=== PATIENT | female | born 1970 | race Caucasian/White ===

== ENCOUNTER → 2017-04-18 09:02 | Outpatient (CLI) | payer OTHER, SELFPAY ==
--- NOTE | 2017-04-18 09:06 | US_ITS ---
STUDY: ULTRASOUND - URINARY BLADDER REASON FOR EXAM: Female, 46 years old. Urinary retention. TECHNIQUE: Ultrasound evaluation of the urinary bladder was performed with real-time and static alfonso-scale imaging. COMPARISON: None. FINDINGS: There is no right UVJ calculus. There is a visualized right ureteral jet. There is no left UVJ calculus. There is a visualized left ureteral jet. The distended volume of the urinary bladder is 231 ml. The empty volume of the urinary bladder is 46 ml. The bladder wall is within normal limits. The bladder wall measures 3 mm. There is no demonstrated bladder wall mass lesion. There are no demonstrated bladder calculi. US/Post Void Residual Bladder IMPRESSION: Minimal postvoid residual. Otherwise negative. Electronically Signed: Richmond Stein MD at 16:48 EST , Service support ,
== END ==
PROVIDERS: Family Provider Internal Medicine; PCP Internal Medicine; Visit Provider Internal Medicine
DX: N39.9 Disorder of urinary system, unspecified (principal)
CPT/HCPCS: 51798

== ENCOUNTER → 2017-07-04 11:14 | Outpatient (CLI) | payer OTHER, SELFPAY ==
--- NOTE | 2017-07-04 11:16 | RAD_ITS ---
STUDY: X-RAY - ABDOMEN/PELVIS REASON FOR EXAM: Female, 46 years old. Bilateral kidney stones. TECHNIQUE: 2 images of the abdomen were obtained. COMPARISON: CT dated May 02, 2016 FINDINGS: There is a nonspecific bowel gas pattern. There are surgical clips within the right upper quadrant cholecystectomy. There is a neurostimulator partially projecting over the expected region of the right kidney. No renal calculi are seen. There are phleboliths within the pelvis. There are pedicle screws at L5-S1. RAD/Abdomen Single View IMPRESSION: Nonspecific bowel gas pattern. Electronically Signed: Monica Sánchez MD at 19:21 EDT Tel , Service support ,
== END ==
PROVIDERS: Family Provider Internal Medicine; PCP Internal Medicine; Visit Provider Urology
DX: N23 Unspecified renal colic (principal)
CPT/HCPCS: 74018

== ENCOUNTER → 2017-07-04 13:13 | Outpatient (CLI) | payer OTHER, SELFPAY | PROVIDERS: Family Provider Internal Medicine; PCP Internal Medicine; Visit Provider Urology | DX: R31.9 Hematuria, unspecified (principal); Z87.442 Personal history of urinary calculi | CPT/HCPCS: 87086; 87088 ==

== ENCOUNTER → 2017-07-18 14:39 | Outpatient (CLI) | payer OTHER, SELFPAY ==
--- NOTE | 2017-07-18 14:46 | CT_ITS ---
STUDY: CT ABDOMEN AND PELVIS WITHOUT CONTRAST REASON FOR EXAM: Female, 46 years old. Bilateral flank pain. Bladder pain. Hematuria. Follow smelling urine. RADIATION DOSAGE (If Supplied By Facility): CTDIvol = ( 16.2 ) mGy, DLP = ( 858.4 ) mGycm TECHNIQUE: Transaxial images were obtained from the dome of the diaphragm to the symphysis pubis without oral contrast, and without intravenous contrast. Sagittal and coronal images were reconstructed. Individualized dose optimization techniques were used for this CT. COMPARISON: CT of the abdomen and pelvis, May 02, 2016. FINDINGS: The visualized lung bases are unremarkable. The heart is normal size. There is minimal pericardial thickening. Normal liver. There are surgical clips in the gallbladder fossa consistent with a prior cholecystectomy. Normal spleen. Normal pancreas. Normal bilateral adrenal glands. The right kidney is of normal size and cortical thickness. 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 The ureters appear to merge in the upper pelvis. Normal left kidney. Normal left ureter. Normal visualized stomach. Normal small intestine. Normal colon. The appendix is visualized and appears normal. Normal abdominal aorta. Minimal atherosclerotic changes of the abdominal aorta without aneurysm. Normal retroperitoneum. Normal urinary bladder. Normal vaginal cuff. No pelvic lymphadenopathy or mass. Again seen are multiple right sided phleboliths unchanged from prior study. No free air or free fluid is seen within the peritoneal cavity. Normal abdominal wall. There is a generator for dorsal column stimulator overlying the right upper back. There is evidence of L5-S1 fusion with laminectomy. CT/Abdomen/Pelvis without Cont IMPRESSION: 1. Normal kidneys and ureters and urinary bladder. There is a partially duplicated right renal collecting system without hydronephrosis or renal calculi. The suspected right ureteral calculus on the prior study appears to be a phlebolith. 2. Status post hysterectomy and cholecystectomy. 3. Dorsal column stimulator. 4. Posterior fusion at L5-S1. Electronically Signed: Bernardo Muñoz DO at 15:28 EDT Tel [phone], Service support ,
== END ==
PROVIDERS: Family Provider Internal Medicine; PCP Internal Medicine; Visit Provider Urology
DX: N20.0 Calculus of kidney (principal)
CPT/HCPCS: 74176

== ENCOUNTER → 2017-09-08 18:38 | Outpatient (CLI) | payer OTHER, SELFPAY ==
--- NOTE | 2017-09-08 18:41 | CT_ITS ---
STUDY: CT BRAIN WITHOUT CONTRAST REASON FOR EXAM: Female, 46 years old. HEAD INJURY, LEFT EAR DRUM PAIN, FALL 2 WKS AGO RADIATION DOSAGE (If Supplied By Facility): CTDIvol = ( 44.99 ) mGy, DLP = ( 829.85 ) mGycm TECHNIQUE: Transaxial CT imaging of the brain was performed without administration of intravenous contrast material. Individualized dose optimization techniques were used for this CT. COMPARISON: None. FINDINGS: Normal soft tissue structures. Normal calvarium. Normal size ventricles and extra-axial spaces for the patient's age. Normal white matter tracts of the cerebral hemispheres. Normal basal ganglia and thalami. Normal brainstem. Normal cerebellum. There is no intracranial hemorrhage. There are no findings of an acute ischemic infarction. Normal visualized paranasal sinuses. CT/Brain/Head without Contrast IMPRESSION: Normal unenhanced CT scan of the brain. Electronically Signed: Mark Enamorado MD at 19:00 EDT , Service support ,
== END ==
PROVIDERS: Family Provider Internal Medicine; PCP Internal Medicine; Visit Provider Internal Medicine
DX: R51 Headache (principal)
CPT/HCPCS: 70450

== ENCOUNTER 2017-10-25 07:23 | Day surgery (SDC) | payer OTHER, SELFPAY ==
[2017-10-20 15:06] LABS: Hematocrit 44.6 % (37-47); Hemoglobin 15.1 g/dl (12.0-15.0); Mean Corp Hgb Conc 33.9 g/gl (32-36); Mean Corpuscular Hgb 30.9 pg (27.0-32.0); Mean Corpuscular Volume 91.4 fL (81-99); Mean Platelet Vol. 9.8 fl (6.2-12.0); Platelet Count 269 K/mm3 (150-450); RBC Distribution Width SD 39.9 fl (35.1-43.9); Red Blood Count 4.88 M/mm3 (4.2-5.4); White Blood Count 5.9 K/mm3 (4.4-11.0)
[2017-10-20 15:08] LABS: Scan Indicated on CBC? Y/N NO
[2017-10-25] VITALS (8 sets, daily range): BP systolic 116–146; BP diastolic 69–90; PULSE 76–94; RESP 16; TEMP 36.3–36.8; O2SAT 93–98; BMI 29.5
--- NOTE | 2017-10-25 08:47 | PCM.DC.ORTHO ---
Discharge Diet: No Restrictions - remove dressings in 4 days and apply bandaids to incision sites, sling, follow up in 2 weeks, call with concerns, may remove sling to do arm pendulums and raise arm above head however not allowed to actively flex at the elbow Discharge Activity: May Not Drive May shower in (days): 1 Ice area for (Minutes): 20 - Every hour while awake. Weight Bearing Status: Weight bearing as tolerated Keep extremity elevated above heart level: Operative Extremity Call your doctor if your incision/area has: Continuous Slow Oozing, Sudden Increased Bleeding, Increased Pain/ Swelling, Increased Redness, Foul Smelling Discharge Call your doctor if you observe: Fever of 101 or Higher, Coldness, Increased Pain, Numbness or Tingling, Change in Color, Calf discomfort Allergies/Adverse Reactions: Allergies ciprofloxacin [From Cipro] Allergy (Verified 10/18/17 13:19) Hives ciprofloxacin HCl [From Cipro] Allergy (Verified 10/18/17 13:19) Hives Medications to take at Discharge cholecalciferol (vitamin D3) 5,000 unit capsule 2,000 unit PO DAILY cap 05/16/17 duloxetine 60 mg capsule,delayed release 60 mg PO QDAY 05/16/17 fentanyl 12 mcg/hr transdermal patch 1 patch TRANSDERMAL Q72H 05/16/17 ibandronate 150 mg tablet 150 mg PO QMONTH 05/16/17 lorcaserin 10 mg tablet 10 mg PO BID 05/16/17 pregabalin 150 mg capsule 150 mg PO BID 09/21/17 Mirabegron [Myrbetriq] 50 mg PO DAILY 10/18/17 Omeprazole 40 mg PO DAILY 10/18/17 Topiramate [Topamax] 50 mg PO BID 10/18/17 Hydrocodone Bitart/Apap 5-325 [[place] 5MG-325MG] 1 - 2 tablet PO Q6H PRN PRN 5 Days #40 tablet 10/25/17 The following prescriptions were given: Hydrocodone Bitart/Apap 5-325 [[place] 5MG-325MG] 1 - 2 tablet PO Q6H PRN PRN 5 Days #40 tablet PRN Reason: Pain Primary Care Physician: La Cordero MD [Primary Care Provider] - Test Results: Test results from this visit will be discussed in further detail at your follow-up appointment, if applicable. Please Follow Up With: Marlena Ceja, DO - [phone]
--- NOTE | 2017-10-25 08:47 | PCM.OPRPT ---
Report of Operation Date of Procedure: 10/25/17 Pre-Operative Diagnosis: left shoulder impingement syndrome, biceps tendinosis, synovitis, Post-Operative Diagnosis: same Surgery/Procedure Performed:: sals, subacromial decompression/acromioplasty, intraarticular debridement, open subpec biceps tenodesis Type of Anesthesia:: General/Regional Anesthesiologist: Lg Rodriguez Fluids Replaced: 1000ml lr Description of Procedure: Preoperative note Patient is a 47-year-old female who is failed conservative treatment for continued left shoulder pain impingement syndrome and biceps tendinosis. Patient had ultrasound done that showed biceps tendinosis as well as bursitis no obvious rotator cuff tear. Risks benefits and alternatives surgery discussed with patient. Risks including but not limited to blood loss, blood clot, infection, neurovascular injury, failure procedure, loss of life and loss of limb. Patient is aware like proceed with left shoulder arthroscopy repair is indicated. Operative note Patient seen and examined preoperative holding area. Left shoulder was marked. Patient received a preoperative regional block. Patient was brought to the operating room placed supine on the operating room table. Sign, anesthesia, antibiotics for Mr. Patient was placed in beachchair positioning with all bony prominences well-padded SCDs placed on her bilateral lower extremity. Senior Living through beachchair position we did recheck her blood pressure which was stable throughout. Patient's left arm was prepped and draped in usual sterile fashion all bony landmarks were marked out and a timeout was performed. Then insufflated the glenohumeral joint from the posterior portal. We had good return. We then created our posterior portal with an 11 blade. We will visualize the glenohumeral joint. She had a little bit of eburnated changes of the articular surface of the humerus. We then created an anterior portal under direct visualization. Patient had synovitis on the superior aspect of the labrum and on the lateral joint line as well as anterior. We used the shaver to gently debrided back any synovitis of the shoulder. We then evaluated the biceps the biceps insertion was unstable. We then resected the biceps anchor with a ablator wand. The subscap was intact rotator cuff was intact there were no loose bodies in the inferior recess. We then moved to the acromial space. We created a lateral portal under direct visualization. There is extensive bursitis throughout. We resected the bursa with a combination of a shaver and ablator. We then co-plane and removed any loose pieces on the leading edge of the acromion. The rotator cuff was intact and stable to probing. We then moved to her open biceps tenodesis. The patient was reprepped we will out of the way to time we created a 2 cm incision just distal to the insertion of the pack. We used a 15 blade cut the skin dissected down with tenotomy syllable of the biceps sheath which was excised the biceps was then brought out of the incision appropriate length was achieved and the biceps tendon was truncated. We then in standard fashion whipstitched the remaining stump of the biceps we placed our pec button at the end and we then drilled unicortical bone tunnel in the proximal humeral shaft. This brought the tendon down to bone we then oversewed with a free needle the tendon down to the periosteum. We then irrigated the incision with copious amounts of sterile saline. Please note that we did measure the length of the biceps and with the arm extended. We closed the incision with 3-0 Vicryl in a running 4-0 Monocryl in the portals with interrupted 4-0 nylon stitches. Sterile dressings were applied patient was placed in a splint sling. Patient tolerated procedure well there are no complication patient was transferred to recovery room in stable condition. Next Postoperative note Pictures given to family Call with increased pain numbness tingling or further issues arise Follow-up in 2 weeks Pharmacy has prescription This note was generated with Plug.dj dictation software. It may contain incorrect words, spelling, and punctuation that were not noted in checking the note before signing.
--- NOTE | 2017-10-25 09:05 | TESH_PTH ---
PATIENT: PELON ROJAS [place] [facility] [id number] AGE/SX: 47/F ROOM: RE10/25/[address]: Dr. Marlena Ceja DO : 1970 BED: DIS: 10/25/2017 SPEC #: [id number] RECD: 10/25/17 13:53 STATUS: JENNA ABE #: [id number] CHERYL: 10/25/17 09:[address]: Marlena Ceja DEPT: SURGICAL PATHOLOGY RECD BY: Ramin Martinez ENTERED: 10/25/17 14:24 SP TYPE: TENDON OTHR DR: Dr. La Cordero MD Tissues: Tendon and tendon sheath, NOS Procedures: Surgery Specimen Level III HEADER OPERATION: Arthroscopy, shoulder, open bicep tenodesis, subacromial PRE-OP DIAGNOSIS: Left shoulder impingement syndrome; bursitis of left shoulder TISSUE SUBMITTED: Left biceps tendon MICROSCOPIC DIAGNOSIS Left bicep tendon: Pieces of dense fibroconnective tissue and synovial tissue with reactive changes and chronic inflammation. ARELY:carrie 10/26/17 MICROSCOPIC DESCRIPTION Slides are reviewed. GROSS DESCRIPTION Received in fixative is one container labeled with the patient's name and designated biceps tendon. The specimen consists of two pieces of cooney, indurated tissue measuring in aggregate 3.5 x 1 x 0.3 cm. The entire specimen is submitted in one cassette. / ARELY:carrie 10/25/17 TC:3 CPT: 81735
[2017-10-25] MEDS: Cefazolin 2 GM in 0.9% Normal Saline 100 ML IV (09:34)
[2017-10-25] MEDS: Mupirocin Ointment 22gm Tube 1 APPLIC (11:06)
[2017-10-25] MEDS: HYDROcodone Bitartrate/Apap 5/325 Tablet PO (12:58)
== END 2017-10-25 13:26 | disposition home or self-care (01) ==
LOC: SDC 07:25 → AC 07:25
PROVIDERS: Family Provider Internal Medicine; PCP Internal Medicine; Visit Provider Orthopaedic Surgery
PROC: (CPT 29827; principal; 2017-10-25 08:50)
DX: M65.9 Synovitis and tenosynovitis, unspecified (principal); M75.22 Bicipital tendinitis, left shoulder; M75.42 Impingement syndrome of left shoulder; M75.52 Bursitis of left shoulder; G47.30 Sleep apnea, unspecified; M06.9 Rheumatoid arthritis, unspecified; G25.81 Restless legs syndrome; M19.90 Unspecified osteoarthritis, unspecified site; M79.7 Fibromyalgia; Q79.6 Ehlers-Danlos syndromes; K21.9 Gastro-esophageal reflux disease without esophagitis; Z87.442 Personal history of urinary calculi; Z79.891 Long term (current) use of opiate analgesic; Z79.899 Other long term (current) drug therapy
CPT/HCPCS: 29822; 29828; 36415; 85027; 88304; 93005; J7120; J2405

== ENCOUNTER 2018-02-06 14:00 | Outpatient (RCR) | payer OTHER, SELFPAY ==
--- NOTE | 2017-11-16 12:22 | HP.PTEVAL_ITS ---
Patient's Visit Information PELON ROJAS is a 47 year old F referred to Physical Therapy by Marlena Ceja DO with a diagnosis of LEFT SHOULDER SCOPE WITH BICEPS TENODESIS 10/25/09. Date of Evaluation: 11/16/17 Physical Therapist: Bonita Masterson Visit Plan Frequency: 2x /Week Duration: 2-4 Months Plan: PT REHAB PER THE [facility] BICEPS TENODESIS GUIDELINES/ PROTOCOL IN PROTOCOL FOLDER TOLERATED. MONITOR LEFT UE NUMBNESS/TINGLING/ DISCOMFORT. MONITOR LEFT NECK PAIN/CHECK NECK ROM. - Subjective Subjective: Diagnosis: S/P LEFT SHOULDER SCOPE WITH BICEPS TENODESIS 10/25/17. Work/Leisure: UNEMPLOYEED. Disability: NO. Present symptoms: NUMBNESS WITH DISCOMFORT IN FINGERS AND FOREARM. SHE REPORTS IT IS NEVER ALL OF HER FINGERS TOGETHER - THE NUMBNESS IS EITHER IN HER LAST TWO FINGERS OR FIRST 3 FINGERS. STATES SHE DEVELOPED A PINCH IN HER NECK ABOUT 3 DAYS AGO. Present since: ONGOING PROBLEM WITH LEFT ARM FOR YEARS PER PATIENT REPORT. Pain Scale: Worst - 6/10 Least - 0/10. PATIENT REPORTS MOST OF THE TIME SHE DOESN'T HAVE ANY PAIN. STATES SHE REALLY HASN'T HAD ANY PAIN WITH THE SHOULDER. THE PAIN/ DISCOMFORT IS IN THE FOREARM AND FINGERS. THE NUMBNESS AND TINGLING IN HER FINGERS COMES AND GOES. LEFT NECK PAIN UP TO 7/10 AT WORST AND 4/10 AT LEAST. HER LEFT NECK PAIN IS CONSTANT. Currently: LEFT NECK PAIN 5/10, LEFT FOREARM/ HAND 0/10. Commenced as a result of: NO APPARENT REASON. Symptoms at onset: LEFT SHOULDER. PATIENT REPORT SHE HAD SOME TINGLING NUMBNESS BEFORE SURGERY TOO BUT IT WAS DIFFERENT THAN WHAT SHE HAS NOW. Disturbed sleep: YES. Previous history/Previous treatment: PHYSICAL THERAPY. Dizziness: NO. Tinnitis: YES. Nausea: NO. Difficulty Swollowing: INTERMITTENT. Gait: NOT USING ANY ASSISTIVE DEVICES. STATES RIGHT KNEE IS STILL A MESS. PMH/ Recent major surgery: Medical History: Bursitis (Acute). Kit-Danlos disease (Chronic). Fibromyalgia (Chronic). Osteoarthritis (Chronic). Restless leg (Chronic). Rheumatoid arthritis (Chronic). Sleep apnea (Chronic) . Surgical History: h/o left shoulder surgery (Acute). H/O: hysterectomy ( Inactive). History of partial knee replacement (Inactive). Kidney stones ( Inactive). S/P cholecystectomy (Inactive). back fusion (Inactive). neurostimulator (Inactive) - Objective AFTER DISCUSSING LAST ORTHO VISIT WITH PATIENT SHE REPORTS SHE DID NOT UNDERSTAND THAT SHE WAS SUPPOSED TO START RESTING HER ARM OUT OF THE BRACE SO SHE HAS REMAINED IN BRACE AT ALL TIMES EXCEPT SHOWER. SHE AMBULATES INDEP'LY INTO PT WITHOUT ANY ASSISTIVE DEVICES BUT DECREASED CADANCE AND MILD LIMP ON RIGHT LE. SHE HAS GOOD AROM OF HER LEFT HAND AND WRIST. LEFT UE LIGHT TOUCH SENSATION IS INTACT. INCISION AND PORT HOLES LOOK GOOD WITHOUT ANY SIGNS OF INFECTION. MILD LEFT SHOULDER AND BICEPTS SWELLING. LEFT PASSIVE ELBOW ROM = MINUS 5 DEG EXT TO 155 DEG FLEX. 5 DEG EXTERNAL ROTATION OF LEFT SHOULDER PAST NEUTRAL WITH ELBOW AT SIDE. PASSIVE LEFT SHOULDER FLEX TO 95 DEG. HOME INSTRUCTIONS GIVEN FOR PENDULUM EX GENTLY CW, CCW, FLEX AND EXTENTION PASSIVELY , AROM OF WRIST AND HAND WHEN RESTING OUT OF BRACE, USE OF HAND PUTTY TOLERATED AND SCAP SQUEEZES IN BRACE. INSTRUCTION IN PROPER POSTURE CONTROL. TO CONTINUE PASSIVE SHOULDER FLEXION AND PATIENT TO CONTINUE PASSIVE ELBOW FLEX/EXT IN BRACE. PATIENT COMMUNICATED AND DEMONSTRATED A GOOD UNDERSTANDING OF ALL INSTRUCTIONS AFTER GIVEN. - Goals Goal 1:: 90% IMPROVEMENT WITH PATIENT REPORTED OUTCOME Goal Time Frame: 12-16 Weeks Goal 2:: FULL ACTIVE ROM OF LUE WITHOUT COMPENSASTORY MVMTS Goal Time Frame: 12-16 Weeks Goal 3:: IMPROVE FUNCTIONAL STRENGTH OF LUE TO ALLOW FOR PAIN-FREE ADL MOVEMENTS WITHOUT COMPENSATIONS. Goal Time Frame: 12-16 Weeks Goal 4:: INDEP HEP FOR CONTINUED IMPROVEMENT ONCE FORMAL PHYSICAL THERAPY CONCLUDES Goal Time Frame: 12-16 Weeks - Rehabilitation Potential Rehabilitation Potential: Fair - Anticipated Interventions Patient/Client Instruction: Educate patient on: Condition, Plan of Care, Risk Factors, Benefits of Fitness Program For the Purpose of:: To improve self management Therapeutic Exercise to Include: Strength training, Postural training, Flexibilty training, Passive ROM, Active ROM, Scapular Strength/Stabilization Comment: PER PROTOCOL For the Purpose of:: To increase ROM, To improve muscle performance and motor function, To improve ability to perform ADL's, To increase tolerance to activity /condition/position, To improve performance and independence with ADL's, To improve ability of physical actions for home/community/work/leisure, To decrease soft tissue restriction Cryotherapy (ice pack, ice massage): Yes Vasopneumatic device: Yes For the Purpose of:: To decrease pain, To decrease swelling/inflammation Thank you for the opportunity to evaluate your patient. For Medicare and Medicare HMO plans, please review the plan of care and approve it. It will need to be FAXED BACK to us at [phone] for Medicare purposes. Please let me know if there are questions or concerns regarding this plan of care. Physician Signature: Date:
--- NOTE | 2017-12-21 09:58 | HP.PTREVAL_ITS ---
Marlena Ceja, DO, It has been my pleasure to treat PELON ROJAS over the last 9 visits for LEFT SHOULDER SCOPE WITH BICEPS TENODESIS 10/25/09. Please see the progress note below for an update on the physical therapy plan of care! Subjective: PATIENT REPORTS SHE HAS JUST A LITTLE BIT OF PAIN IN THE SHOULDER ITSELF BUT THE SX'S IN THE THE REST OF HER ARM AND HAD THAT HAS SUBSIDED. STILL SOME RESIDUAL AARTI HAND NUMBNESS AND TINGLING. PATIENT REPORTS WHEN SHE FOLLOWED UP WITH ORTHO AT THE BEGINNING OF DECEMBER THEY WERE HAPPY WITH HER PROGRESS AND SHE IS SCHEDULED TO RETURN IN JANUARY. SHE REPORTS SHE DOES NOT HAVE ANY RESTRICTIONS AT THIS TIME AND ACTIVITIY IS TOLERATED. HER GOAL AT THIS POINT IS TO GET THE STRENGTH BACK IN HER ARM. Objective/Function: PATIENT IS 8 WEEKS PO. DASH SCORE HAS IMPROVED FROM 112 TO 71. PATIENT IS MAKING SLOW PROGRESS TOWARD ALL PT GOALS. PATIENT IS STILL IN PHASE 2 BECAUSE CRITERIA TO MOVE TO PHASE 3 HAS NOT BEEN MET. CURRENTLY, AROM OF LEFT SHOULDER IN SITTING IS: FLEX 123 DEG, ABD 98 DEG. PROM IN SUPINE: FLEX 148 DEG, ABD 108 DEG, IR 80 DEG AND ER 25 DEG (ROTATION MEASURED WITH 45 DEG ABD). PATIENTS NON OPERATIVE SHOULDER ROM IS ALSO SIGNIFICANTLY LIMITED AND PATIENT REPORTS IT HAS BEEN AT LEAST 2-3 YEARS SINCE SHE HAD FULL ROM OF LEFT SHOULDER. ONCE ROM PLATEAUS WE MAY NEED MODIFY THE PROTOCOL AND MOVE INTO MORE STRENGTHENING TOLERATED Plan Plan: CONT 1X/WEEK X 11 WEEKS. PT REHAB PER THE [facility] BICEPS TENODESIS GUIDELINES/PROTOCOL IN PROTOCOL FOLDER TOLERATED. PATIENT AGREEABLE. Goals Goal 1:: 90% IMPROVEMENT WITH PATIENT REPORTED OUTCOME Goal Time Frame: 12-16 Weeks Goal Progress: Progressing Goal 2:: FULL ACTIVE ROM OF LUE WITHOUT COMPENSASTORY MVMTS Goal Time Frame: 12-16 Weeks Goal Progress: Progressing Goal 3:: IMPROVE FUNCTIONAL STRENGTH OF LUE TO ALLOW FOR PAIN-FREE ADL MOVEMENTS WITHOUT COMPENSATIONS. Goal Time Frame: 12-16 Weeks Goal Progress: Progressing Goal 4:: INDEP HEP FOR CONTINUED IMPROVEMENT ONCE FORMAL PHYSICAL THERAPY CONCLUDES Goal Time Frame: 12-16 Weeks Goal Progress: Progressing Anticipated Interventions Patient/Client Instruction: Educate patient on: Condition, Plan of Care, Risk Factors, Benefits of Fitness Program For the Purpose of:: To improve self management Therapeutic Exercise to Include: Strength training, Postural training, Flexibilty training, Passive ROM, Active ROM, Scapular Strength/Stabilization Comment: PER PROTOCOL For the Purpose of:: To increase ROM, To improve muscle performance and motor function, To improve ability to perform ADL's, To increase tolerance to activity/condition/position, To improve performance and independence with ADL's, To improve ability of physical actions for home/community/work/leisure, To decrease soft tissue restriction Cryotherapy (ice pack, ice massage): Yes Vasopneumatic device: Yes For the Purpose of:: To decrease pain, To decrease swelling/inflammation Please do not hesitate to contact me at [phone] by phone or if you have questions or concerns regarding this new plan of care! Sincerely, Bonita Messina
--- NOTE | 2018-03-21 13:58 | HP.PT.NRP ---
HP - Discharge Summary (1) - Patient Information PELON ROJAS was seen in my office for initial evaluation on 11/16/17. The following Plan of Care was established for this patient: Initial Frequency: 2x /Week Initial Duration: 2-4 Months - Anticipated Interventions Patient/Client Instruction: Educate patient on: Condition, Plan of Care, Risk Factors, Benefits of Fitness Program For the Purpose of:: To improve self management Therapeutic Exercise to Include: Strength training, Postural training, Flexibilty training, Passive ROM, Active ROM, Scapular Strength/Stabilization For the Purpose of:: To increase ROM, To improve muscle performance and motor function, To improve ability to perform ADL's, To increase tolerance to activity/condition/position, To improve performance and independence with ADL's, To improve ability of physical actions for home/community/work/leisure, To decrease soft tissue restriction Cryotherapy (ice pack, ice massage): Yes Vasopneumatic device: Yes For the Purpose of:: To decrease pain, To decrease swelling/inflammation This patient was last seen in our office 02/06/18. Pertinent comments regarding their Physical therapy will appear below: This patient has not returned to Physical Therapy and is appropriate to return to MD for further follow-up as needed. At this point I will be discontinuing this patient from physical therapy. I would be happy to see this patient again in the future if found appropriate by the physician. Thank you! Bonita Messina, PT, Cert MDT
== END 2018-02-06 19:00 | disposition home or self-care (01) ==
LOC: PT 14:00
PROVIDERS: Family Provider Internal Medicine; PCP Internal Medicine; Visit Provider Orthopaedic Surgery
DX: Z98.890 Other specified postprocedural states (principal)
CPT/HCPCS: 97110; 97140; 97162; 97164; 97530

== ENCOUNTER → 2018-03-01 15:33 | Outpatient (CLI) | payer OTHER, SELFPAY | PROVIDERS: Family Provider Internal Medicine; PCP Internal Medicine; Referring Provider Otolaryngology Otolaryngology/Facial Plastic Surgery; Visit Provider Otolaryngology Otolaryngology/Facial Plastic Surgery | DX: J02.9 Acute pharyngitis, unspecified (principal) | CPT/HCPCS: 87070 ==

== ENCOUNTER → 2018-04-24 07:54 | Outpatient (CLI) | payer OTHER, SELFPAY ==
--- NOTE | 2018-04-24 08:12 | RAD_ITS ---
STUDY: X-RAY - ESOPHAGUS (BARIUM SWALLOW) WITH FLUOROSCOPY REASON FOR EXAM: Female, 47 years old. Dysphagia for solids and tablets. Hoarseness. Left vocal cord paralysis. TECHNIQUE: 18 view(s) of the esophagus were obtained following swallowing of barium. FLUOROSCOPY TIME (if supplied): (1:01) minutes/seconds COMPARISON: None. FINDINGS: There is no demonstrated esophageal foreign body. There is no demonstrated stricture or mucosal abnormality. Normal gastroesophageal junction, without a demonstrated hiatal hernia. The patient ingested a 12 mm tablet of barium without any difficulty. Normal visualized aortic arch and descending thoracic aorta. Normal visualized pulmonary parenchyma. Normal visualized osseous structures of the thorax. A spinal cord stimulator is seen. RAD/Esophagus Only IMPRESSION: Normal plain film x-ray examination (barium swallow) of the esophagus. Electronically Signed: Calvin Lovell MD at 12:36 EST , Service support ,
== END ==
PROVIDERS: Family Provider Internal Medicine; PCP Internal Medicine; Referring Provider Otolaryngology Otolaryngology/Facial Plastic Surgery; Visit Provider Otolaryngology Otolaryngology/Facial Plastic Surgery
DX: R13.10 Dysphagia, unspecified (principal)
CPT/HCPCS: 74220

== ENCOUNTER → 2018-10-08 | Outpatient (CLI) | payer SELFPAY ==
--- NOTE | 2018-10-08 15:15 | RAD_ITS ---
STUDY: X-RAY - ABDOMEN/PELVIS REASON FOR EXAM: Female, 48 years old. Abdominal pain with nausea. TECHNIQUE: AP supine and upright views of the abdomen and pelvis. COMPARISON: Comparison is made with prior study dated July 04, 2017. FINDINGS: Normal visualized lung bases. There is a moderate amount of colonic fecal material. There is no demonstrated free abdominal air. The visualized liver, spleen and kidneys are grossly normal in size and morphology. Prior cholecystectomy. A pain stimulator device is seen overlying the right midabdomen. The patient is status post laminectomy and fusion at the L5-S1 level. RAD/Abd Inc Decub and/or Erect IMPRESSION: Moderate amount of fecal material is seen in the right hemicolon. Electronically Signed: Calvin Lovell, at 15:42 EDT , Service support ,
== END | disposition home or self-care (01) ==
LOC: HPRAD 15:11
PROVIDERS: Family Provider Internal Medicine; PCP Internal Medicine; Referring Provider Internal Medicine; Visit Provider Internal Medicine
DX: R11.0 Nausea (principal)
CPT/HCPCS: 74019

== ENCOUNTER → 2018-12-31 | Outpatient (CLI) | payer OTHER, SELFPAY ==
--- NOTE | 2018-12-31 12:59 | RAD_ITS ---
STUDY: X-RAY - CERVICAL SPINE REASON FOR EXAM: Female, 48 years old. Pain, headache. TECHNIQUE: 5 view(s) of the cervical spine were obtained. COMPARISON: None FINDINGS: There are degenerative changes of the anterior atlantoaxial articulation. Normal odontoid process. Normal cervical lordosis. There is multi-level endplate spondylosis. There is narrowing of disc space at C6-C7, remainder of disc height is normal. Normal visualized intervertebral neuroforamina. The soft tissue structures are unremarkable. There is no demonstrated fracture of the cervical spine. RAD/Cerv Spine 4 or 5 Views IMPRESSION: Multilevel spondylosis/degenerative disease with no acute fracture or subluxation. Electronically Signed: Destiny Faith MD at 1:41 EDT , Service support ,
== END | disposition home or self-care (01) ==
LOC: HPRAD 12:58
PROVIDERS: Family Provider Internal Medicine; PCP Internal Medicine; Referring Provider Internal Medicine; Visit Provider Internal Medicine
DX: M54.2 Cervicalgia (principal)
CPT/HCPCS: 72050

== ENCOUNTER → 2019-01-02 | Outpatient (CLI) | payer OTHER, SELFPAY ==
--- NOTE | 2019-01-02 13:25 | RAD_ITS ---
STUDY: X-RAY BONE SURVEY COMPLETE REASON FOR EXAM: Female, 48 years old. Myeloma. TECHNIQUE: Single AP portable view of the chest. One view of the pelvis was obtained. 2 views of the cervical spine were obtained. 2 views of the thoracic spine were obtained. 2 views of the lumbar spine were obtained. 1 views of the femur, distal tibia and fibula. 1 views of the humerus, radius and ulna. : 2 views of the skull were obtained. COMPARISON: None. FINDINGS: CHEST: The lungs are clear and expanded. There is no demonstrated pleural abnormality. Normal size heart. Normal mediastinum and lisbet. Normal visualized pulmonary arteries. Normal visualized aortic arch and descending thoracic aorta. There is a practical catheter in place. There is diffuse osteopenia with multilevel spondylosis/degenerative disease of thoracic spine. Otherwise normal visualized thoracic spine. There is degenerative osteoarthritis of the bilateral shoulders. There is no demonstrated abnormality of the visualized soft tissue structures of the upper abdomen. PELVIS: There is a non-specific bowel gas pattern. Normal visualized soft tissue structures. There is posterior fusion at L5-S1 with laminectomy. There is narrowing with cortical sclerosis and osteophyte formation of the sacroiliac joint consistent with mild degenerative osteoarthritic changes. Normal visualized bilateral superior and inferior pubic rami. There are degenerative changes of the pubic symphysis with articular narrowing and sclerosis. Normal ischial tuberosities. Normal visualized right femoral head. Normal right acetabulum. Normal right hip joint. Normal visualized left femoral head. Normal left acetabulum. Normal left hip joint. CERVICAL SPINE: There are degenerative changes of the anterior atlantoaxial articulation. Normal odontoid process. Normal cervical lordosis. There is normal in size of a spondylosis. Otherwise normal vertebral bodies and endplates. There is multi-level degenerative disc disease with multilevel disc space narrowing. This is more severe at C6-C7. The soft tissue structures are unremarkable. There is no demonstrated fracture of the cervical spine. THORACIC SPINE: Normal kyphosis of the thoracic spine. There is mild scoliosis of the thoracic spine, convexity to the right. There is demineralization of the thoracic spine with endplate spondylosis. There is multilevel disc space narrowing of the thoracic spine. The soft tissue structures are unremarkable. LUMBAR SPINE: Normal lumbar lordosis. There is no substantial scoliosis. There is a normal alignment of the vertebrae. There is multilevel endplate spondylosis of the lumbar vertebrae. Normal disc space heights. There is no demonstrated fracture. There is posterior fusion at L5-S1. The soft tissue structures are unremarkable. RIGHT FEMUR, TIBIA AND FIBULA: Normal visualized femur. Normal visualized soft tissue structure. There is no demonstrated fracture or destructive process. LEFT FEMUR, TIBIA AND FIBULA: Normal visualized femur. Normal visualized soft tissue structure. There is no demonstrated fracture or destructive process. RIGHT HUMERUS, RADIUS AND ULNA :Normal visualized humerus. There is no demonstrated fracture or osseous destructive process. There is no demonstrated soft tissue abnormality. LEFT HUMERUS, RADIUS AND ULNA :Normal visualized humerus. There is no demonstrated fracture or osseous destructive process. There is no demonstrated soft tissue abnormality. SKULL: There is no demonstrated soft tissue swelling. Normal osseous calvarium. Normal visualized facial bones. Normal visualized paranasal sinuses. RAD/Bone Survey Comp(Axial&Append) IMPRESSION: Areas of diffuse osteopenia along with multilevel degenerative disease, more so along the spine. No acute fracture or distinct bony lesion seen. Electronically Signed: Destiny Faith MD at 3:57 EDT , Service support ,
== END | disposition home or self-care (01) ==
LOC: RAD 12:33
PROVIDERS: Family Provider Internal Medicine; PCP Internal Medicine; Referring Provider Internal Medicine; Visit Provider Internal Medicine
DX: D47.2 Monoclonal gammopathy (principal)
CPT/HCPCS: 77075

== ENCOUNTER → 2019-01-15 | Outpatient (CLI) | payer OTHER, SELFPAY ==
--- NOTE | 2019-01-15 14:46 | BD_ITS ---
STUDY: DUAL ENERGY X-RAY ABSORPTIOMETRY / DXA REASON FOR EXAM: Female, 48 years old. Early menopause. Loss of height. TECHNIQUE: Bone Mineral Density (BMD) measurements of lumbar spine and bilateral hips were obtained. COMPARISON: Comparison is made with prior study dated October 13, 2015. FINDINGS: Lumbar Spine (L1-L4): g/cm2 (0.884) / T-score (-2.5) / Z-score (-2.1) Findings are suggestive of osteoporosis with a high fracture risk. Left Femur Total: g/cm2 (0.799) / T-score (-1.7) / Z-score (-1.2) Left Femoral Neck: g/cm2 (0.783) / T-score (-1.8) / Z-score (-1.1) Right Femur Total: g/cm2 (0.718) / T-score (-2.3) / Z-score (-1.9) Right Femoral Neck: g/cm2 (0.743) / T-score (-2.1) / Z-score (-1.4) The T-Scores on the most recent prior examination were: Lumbar Spine (L1-L4): There has been worsening of bone density since the previous examination. Left Femur Total: which represents a worsening of 5.7%. Right Femur Total: which represents a worsening of 14.5%. BD/Dexa Bone Density Study IMPRESSION: The patient is considered osteoporotic as outlined below according to World [employer] Organization (WHO) criteria with a high fracture risk. There has been worsening of bone density since the previous examination. Reference Information: The T-score is the number of standard deviations above or below the standard which is normal for young adults at their peak bone mineral density. The World Health Organization (WHO) interprets the T-scores as follows: Above -1 Normal bone density Between -1 and -2.5 Osteopenia Equal to / or below -2.5 Osteoporosis As a practical clinical guideline, osteopenia may be graded as follows: Mild -1 through -1.5 Moderate -1.6 through -2.0 Severe -2.1 through -2.4 The Z-score is the number of standard deviations above or below age-matched controls. A Z-score of less than -1.5 would be considered abnormal. References: 1. NIH Osteoporosis and Related Bone Diseases http://www.osteo.org 2. International Society for Clinical Densitometry http://www.iscd.org 3. National Osteoporosis Foundation http://www.nof.org Electronically Signed: Calvin Lovell, at 15:15 EST , Service support ,
== END | disposition home or self-care (01) ==
LOC: OPBD 14:40
PROVIDERS: Family Provider Internal Medicine; PCP Internal Medicine; Referring Provider Internal Medicine; Visit Provider Internal Medicine
DX: Z78.0 Asymptomatic menopausal state (principal)
CPT/HCPCS: 77080

== ENCOUNTER → 2019-02-05 07:02 | Outpatient (CLI) | payer OTHER, SELFPAY ==
--- NOTE | 2019-02-05 07:04 | CT_ITS ---
STUDY: CT CERVICAL SPINE WITHOUT CONTRAST REASON FOR EXAM: Female, 48 years old. Neck pain, history of rheumatoid arthritis and a Kit Danlos syndrome RADIATION DOSAGE (If Supplied By Facility): CTDIvol = ( 24.99 ) mGy, DLP = ( 525.88 ) mGycm TECHNIQUE: High resolution transaxial imaging was performed without contrast material. Sagittal and coronal images were reconstructed. Individualized dose optimization techniques were used for this CT. COMPARISON: None FINDINGS: Normal craniovertebral junction. Normal anterior atlantoaxial articulation. Normal odontoid process. Normal cervical lordosis. There is endplate spondylosis C6. C2-3: Normal endplates. Normal disc height and morphology. Normal central canal and intervertebral neuroforamina. C3-4: Normal endplates. Normal disc height and morphology. Normal central canal and intervertebral neuroforamina. C4-5: Normal endplates. Normal disc height and morphology. Normal central canal and intervertebral neuroforamina. C5-6: Normal endplates. Normal disc height and morphology. Normal central canal and intervertebral neuroforamina. C6-7: Disc spacing is preserved. There is endplate spondylosis of the inferior C1 body. There is no central canal stenosis or foraminal narrowing. C7-T1: Normal endplates. Normal disc height and morphology. Normal central canal and intervertebral neuroforamina. There is a small well-defined sclerotic focus of the posterior T1 body consistent with benign process such as bone island. Normal visualized soft tissue structures. CT/Spine Cervical without Contras IMPRESSION: Degenerative changes of C6. Small sclerotic focus of T1 consistent with benign process such as bone island. Electronically Signed: Jack Avalos MD at 20:43 EST , Service support ,
== END ==
PROVIDERS: Family Provider Internal Medicine; PCP Internal Medicine; Referring Provider Internal Medicine; Visit Provider Internal Medicine
DX: M47.812 Spondylosis without myelopathy or radiculopathy, cervical region (principal)
CPT/HCPCS: 72125

== ENCOUNTER 2019-02-05 10:00 | Outpatient (RCR) | payer OTHER, SELFPAY ==
--- NOTE | 2019-01-07 15:15 | HP.PTEVAL ---
Patient's Visit Information PELON ROJAS is a 48 year old F referred to Physical Therapy by La Cordero MD with a diagnosis of SHOULDER PAIN AND CORE WEAKNESS.. Date of Evaluation: 01/07/19 Physical Therapist: Bonita Messina PT, Cert MDT - Visit Plan Frequency: 2-3x /Week Duration: 6-8 Plan: AQUATIC THERAPY FOR POSTURAL AND CORE STABILITY STRENGTHENING. UE STRENGTHENING. PATIENT MAY ALSO BENEFIT FROM AN OCCUPATIONAL THERAPY CONSULT FOR ADAPTIVE EQUIPMENT AND/OR ELBOW, WRIST AND HAND STRENGTHENING HEP. - Subjective Findings: Diagnosis: SHOULDER PAIN AND CORE WEAKNESS. Disability: NO. Present symptoms: PATIENT REPORTS SHE IS GOING TO HAVE A TOTAL KNEE REPLACEMENT APR 2018 AND SHE NEEDS TO STRENGTHEN HER CORE AND SHOULDERS SO SHE CAN USE AN ASSISTIVE DEVICE POST SURGERY. Present since: CHRONIC. Pain Scale: Worst - 8/10 Least - 4/10. Currently: 06/13. Commenced as a result of: DEGENERATIVE ARTHRITIS IN NECK AND SHOULDERS. Worse: LIFTING, REACHING, PUSHING, PULLING AND ANY EXCESSIVE MVMT. Better: MASSAGE, HEAT. Disturbed sleep: YES. Previous history/Previous treatment: NO RIGHT SHLD SURGERY. LEFT SHLD SURGERY NOV 2017 FOLLOWED BY REHAB HERE AT [facility]. NO NECK SURGERY. LUMBAR FUSION 2006. SPINAL STIMULATOR. BACK SURGERY. NO RECENT CHIROPRACTIC. AQUATIC THERAPY HAS HELPED A LOT IN THE PAST. Gait: INDEP SLOW ANTALGIC GAIT INTO PT LIMPING ON RIGHT LE. Accidents: MULTIPLE FALLS - CURRENT. Unexplained weight loss: NO. Imaging: STUDY: X-RAY - CERVICAL SPINE. REASON FOR EXAM: Female, 48 years old. Pain, headache. TECHNIQUE: 5 view(s) of the cervical spine were obtained. COMPARISON: None. FINDINGS: There are degenerative changes of the anterior atlantoaxial articulation. Normal odontoid process. Normal cervical lordosis. There is multi-level endplate spondylosis. There is narrowing of disc space at C6-C7, remainder of disc height is. normal. Normal visualized intervertebral neuroforamina. The soft tissue structures are unremarkable. There is no demonstrated. fracture of the cervical spine. RAD/Cerv Spine 4 or 5 Views. IMPRESSION: Multilevel spondylosis/degenerative disease with no acute fracture or. subluxation. PMH/Recent major surgery: Bursitis (Acute). Kit-Danlos disease (Chronic). Fibromyalgia (Chronic). Osteoarthritis (Chronic). Restless leg (Chronic). Rheumatoid arthritis (Chronic). Sleep apnea (Chronic). Surgical History: h/o left shoulder surgery (Acute). H/O: hysterectomy (Inactive). History of right partial knee replacement (Inactive). Kidney stones (Inactive). S/P cholecystectomy (Inactive). back fusion (Inactive). neurostimulator (Inactive). H/O left knee arthroscopic sx. PATIENT HAS A SPINAL STIMULATOR. - Objective Sitting/Standing Posture: POOR. SLOUCHED AND SLIGHTLY FORWARD FLEX'D. Lateral shift: NO. Active Correction of posture: INCREASES BACK PAIN. Other Observations: INDEP ANTALGIC GAIT INTO PT WITHOUT ANY ASSISTIVE DEVICES LIMPING ON RIGHT LE. PATIENT REPORTS SHE HAS FOREARM CRUTCHES AT HOME BUT DIFFICULTY FOR HER TO USE DUE TO WEAKNESS AND PAIN. Motor deficit: AARTI UE, LE AND CORE WEAKNESS. AARTI SHOULDERS 2+/5, ELBOWS 3+ TO 4-/5, WRISTS AND HANDS 3+ TO 4-/5. HIPS 3+ TO 4-/5, KNEE'S 3+ TO 4-/5 ANKLES 4-/5. Sensory deficit: AARTI UE AND LE'S GROSSLY INTACT. ROM deficit: HYPERMOBILITY OF JOINTS. ONLY ABLE TO ELEVATE ARMS APPROX 125 DEG. FULL AARTI KNEE ROM (FULL EXT TO 145 DEG + FLEX). Reflexes: NT. Lumbar mvmt loss: flex - MOD. ext - NT DUE TO INSTABILITY AND PATIENT RESISTANCE. R SG - MOD. L SG - MOD. ROM PAIN LIMITED ALL PLANES. Core strength: POOR - Goals Goal 1:: IMPROVE AARTI UE AND CORE STRENGTH Goal Time Frame: 6-8 Weeks Goal 2:: PATIENT WILL BE INDEP WITH WATER EX PROGRAM FOR CONTINUED IMPROVEMENT ONCE FORMAL PHYSICAL THERAPY CONCLUDES. Goal Time Frame: 6-8 Weeks - Rehabilitation Potential Rehabilitation Potential: Fair - Anticipated Interventions Patient/Client Instruction: Educate patient on: Condition, Plan of Care, Risk Factors, Benefits of Fitness Program For the Purpose of:: To improve self management Therapeutic Exercise to Include: Strength training, Postural training, In an aquatic setting, Scapular Strength/Stabilization For the Purpose of:: To decrease pain, To improve muscle performance and motor function, To improve ability of physical actions for home/community/work/leisure Thank you for the opportunity to evaluate your patient. For Medicare and Medicare HMO plans, please review the plan of care and approve it. It will need to be FAXED BACK to us at [phone] for Medicare purposes. For Medicare only, by signing this I certify the plan of care. Please let me know if there are questions or concerns regarding this plan of care. Physician Signature: Date:
--- NOTE | 2019-03-11 10:06 | HP.PT.NRP ---
HP - Discharge Summary (1) - Patient Information PELON ROJAS was seen in my office for initial evaluation on 01/07/19. The following Plan of Care was established for this patient: Initial Frequency: 2-3x /Week Initial Duration: 6-8 - Anticipated Interventions Patient/Client Instruction: Educate patient on: Condition, Plan of Care, Risk Factors, Benefits of Fitness Program For the Purpose of:: To improve self management Therapeutic Exercise to Include: Strength training, Postural training, In an aquatic setting, Scapular Strength/Stabilization For the Purpose of:: To decrease pain, To improve muscle performance and motor function, To improve ability of physical actions for home/community/work/leisure This patient was last seen in our office 02/05/19. Pertinent comments regarding their Physical therapy will appear below: This patient has not returned to Physical Therapy and is appropriate to return to MD for further follow-up as needed. At this point I will be discontinuing this patient from physical therapy. I would be happy to see this patient again in the future if found appropriate by the physician. Thank you! Bonita Messina, PT, Cert MDT
== END 2019-02-05 19:00 | disposition home or self-care (01) ==
LOC: PT 10:00
PROVIDERS: Family Provider Internal Medicine; PCP Internal Medicine; Referring Provider Internal Medicine; Visit Provider Internal Medicine
DX: R53.1 Weakness (principal); M25.519 Pain in unspecified shoulder
CPT/HCPCS: 97113; 97162

== ENCOUNTER 2019-02-18 09:41 | Day surgery (SDC) | payer OTHER, SELFPAY ==
[2019-02-18] VITALS (7 sets, daily range): BP systolic 112–151; BP diastolic 65–96; PULSE 67–78; RESP 16; TEMP 36.2–36.5; O2SAT 98–100; BMI 35.5
[2019-02-18] MEDS: Lactated Ringers 1,000 ML 100 ML IV (10:25)
--- NOTE | 2019-02-18 11:10 | FORE_PTH ---
PATIENT: PELON ROJAS LOC: [facility] [place] U#:[id number] AGE/SX: 48/F ROOM: RE02/18/[address]: Dr. aMyank Nava MD : 1970 BED: DIS: 02/18/2019 SPEC #: [id number] RECD: 02/18/19 13:47 STATUS: JENNA RESean #: [id number] CHERYL: 02/18/19 11:[address]: Mayank Nava DEPT: SURGICAL PATHOLOGY RECD BY: Ramin Martinez ENTERED: 02/18/19 14:47 SP TYPE: FOREIGN B OTHR DR: Dr. La Cordero MD Tissues: FOREIGN BODY Procedures: Surgery Specimen Level I HEADER OPERATION: Spinal cord stimulator generator replacement PRE-OP DIAGNOSIS: Lumbosacral radiculopathy; lumbosacral spondylosis TISSUE SUBMITTED: Explant generator GROSS DIAGNOSIS A battery, clinically explant generator (gross only). SJ:carrie 02/19/19 GROSS DESCRIPTION Received labeled with the patient's name and designated explant generator. The specimen consists of a metallic battery measuring 5.5 x 4 x 0.7 cm. The inscription on the battery says [employer] model [id number], this side up, SN [id number]. The specimen is for gross identification only. / ARELY:carrie 02/18/19 CPT: 72434
[2019-02-18] MEDS: Cefazolin 2 GM in 0.9% Normal Saline 100 ML IV (11:16)
[2019-02-18] MEDS: Bacitracin 500 UNITS/GM PACKET (11:38)
[2019-02-18] MEDS: Bupivacaine 0.25% 30 ML Vial (11:51)
--- NOTE | 2019-02-18 12:18 | PCM.OPRPT ---
Report of Operation Date of Procedure: 02/18/19 Description of Surgical Findings:: PREOPERATIVE DIAGNOSIS: End of life spinal cord stimulator generator POSTOPERATIVE DIAGNOSIS: End of life spinal cord stimulator generator PROCEDURE PERFORMED: Spinal cord stimulator generator replacement, spinal cord stimulator programming ANESTHESIA: MAC. BLOOD LOSS: Minimal. COMPLICATIONS: None. Implanted device: [employer] SN # [id number] SN [id number] DESCRIPTION OF PROCEDURE: History and physical of today was reviewed. Risks and benefits of the procedure were explained. The patient understood and agreed to proceed. Informed consent was obtained. IV inserted per routine protocol. The patient was taken to the operating room and placed in the prone position the right side of the lower back and mid back was prepped and draped in a sterile fashion using iodine x3 as well as Ioban, 2 g of Ancef IV piggyback were infused per anesthesia prior to the incision the spinal cord stimulator generator previous incision was then identified and marked with a marking pen the skin and subcutaneous tissue were anesthetized with approximately 16 cc of a mixture of 2% lidocaine with 0.25% Marcaine using a 25-gauge regular needle around the previous incision, the skin and subcutaneous tissue and then incised with 11-gauge blade taken down to the subcutaneous tissue using a bipolar cautery hemostasis was maintained during the procedure the incision was then taken down all the way to the previous generator at the previous pocket created on her right lower back and mid back area the previous stitches on her previous spinal cord stimulator generator was then taken down the spinal cord stimulator was then cleared from her previous pocket using a screwdriver device provided by 1-800-DENTIST the spinal cord stimulator leads were then removed from the generator making sure that the 0-7 positioning is marked the generator was then sent for pathology for further evaluation the [employer] spinal cord stimulator generator was then taken and attached to the spinal cord stimulator leads with the positioning 0-7 matching the previous positioning on the old generator as well as 8-16 leads, impedance was then recorded to be in good range, the spinal cord stimulator generator leads were then secured in place using the screwdriver provided by the kit, the spinal cord stimulator was then placed into the previous pocket that was created and secured down to the fascia with a 2-0 nylon at the 2 eyes of the spinal cord stimulator generator, irrigation of the pocket using normal saline took place once hemostasis was maintained with pressure as well as Bovie electrocautery the area was then irrigated with approximately 50 cc of normal saline once hemostasis was then confirmed the incision was then closed with a 3-0 Vicryl interrupted to the fascia followed by a running 4-0 Monocryl to the skin the area was then dressed with bacitracin and Tegaderm patient was then taken back to recovery in stable condition patient tolerated the procedure well, spinal cord stimulator generator was then reprogrammed at the recovery area. ASSESSMENT AND PLAN: This is a 48-year-old female with end of life spinal cord stimulator generator status post spinal cord stimulator generator replacement and programming patient will continue her current medication a prescription was given to the patient for Keflex 500 mg 1 p.o. every 8 hours for 7 days , patient will follow approximately 1 week postop instructions were given to the patient as well as her verbally as well as in writing.
== END 2019-02-18 13:05 | disposition home or self-care (01) ==
LOC: SDC 09:41 → AC 09:42
PROVIDERS: Family Provider Internal Medicine; PCP Internal Medicine; Referring Provider Anesthesiology Pain Medicine; Visit Provider Anesthesiology Pain Medicine
PROC: (CPT 63688; principal; 2019-02-18 10:55)
DX: M51.17 Intervertebral disc disorders with radiculopathy, lumbosacral region (principal); M47.27 Other spondylosis with radiculopathy, lumbosacral region; M96.1 Postlaminectomy syndrome, not elsewhere classified; M50.10 Cervical disc disorder with radiculopathy, unspecified cervical region; M47.22 Other spondylosis with radiculopathy, cervical region; Q79.60 Ehlers-Danlos syndrome, unspecified; M79.7 Fibromyalgia; E04.9 Nontoxic goiter, unspecified; G47.33 Obstructive sleep apnea (adult) (pediatric); M06.9 Rheumatoid arthritis, unspecified; M19.90 Unspecified osteoarthritis, unspecified site; K21.9 Gastro-esophageal reflux disease without esophagitis; G43.909 Migraine, unspecified, not intractable, without status migrainosus; Z87.442 Personal history of urinary calculi; Z79.891 Long term (current) use of opiate analgesic
CPT/HCPCS: 63688; 88300; J7120

== ENCOUNTER → 2019-08-28 | Outpatient (CLI) | payer OTHER, SELFPAY ==
[2019-02-18 10:20] VITALS: BMI 35.5
--- NOTE | 2019-08-28 18:25 | MRI_ITS ---
STUDY: MRI CERVICAL SPINE WITHOUT CONTRAST REASON FOR EXAM: Female, 48 years old. C/O NECK PAIN BILATERALLY, L JAW PAIN X 3 YRS PAIN IN BASE OF SKULL, NO TRAUMA TECHNIQUE: Standardized fat and water weighted pulse sequences were obtained in the sagittal and axial planes. COMPARISON: CT cervical spine February 05, 2019 FINDINGS: Normal foramen magnum and brainstem-cervical cord junction. Normal craniovertebral junction. Normal anterior atlantoaxial articulation. Normal odontoid process. Normal cervical lordosis. Normal vertebral bodies and posterior osseous elements. C2-3: Normal endplates. Normal disc height, signal and morphology. Normal central canal and intervertebral neural foramina. C3-4: Normal endplates. Normal disc height, signal and tiny central disc protrusion.. Normal central canal and intervertebral neural foramina. C4-5: Normal endplates. Normal disc height, signal and morphology. Normal central canal and intervertebral neural foramina. C5-6: Normal endplates. Normal disc height, signal and tiny central disc protrusion.. Normal central canal and intervertebral neural foramina. There are prominent bilateral perineural cysts C6-7: Mild endplate spurring.. Normal disc height, signal and minor bulging of the disc. Normal central canal and intervertebral neural foramina. There are prominent bilateral perineural cysts C7-T1: Normal endplates. Normal disc height, signal and morphology. Normal central canal and intervertebral neural foramina. Normal cervical cord. Normal visualized soft tissue structures. MRI/Spine Cervical (Routine) IMPRESSION: Tiny central disc protrusions at C3-4 and C5-6 without significant spinal stenosis No evidence for acute fracture or subluxation. Mild spondylosis most pronounced at C6-7. Bilateral perineural cysts at C5-6 and C6-7 of uncertain clinical significance Electronically Signed: Mayank Tan MD at 19:40 EDT , Service support ,
== END | disposition home or self-care (01) ==
PROVIDERS: PCP Internal Medicine; Referring Provider Internal Medicine; Visit Provider Internal Medicine
DX: M47.812 Spondylosis without myelopathy or radiculopathy, cervical region (principal)
CPT/HCPCS: 72141

== ENCOUNTER → 2019-09-25 | Outpatient (CLI) | payer OTHER, SELFPAY ==
[2019-02-18 10:20] VITALS: BMI 35.5
--- NOTE | 2019-09-25 15:45 | BI_ITS ---
MAMMOGRAPHY - BILATERAL SCREENING 3-D TOMOSYNTHESIS REASON FOR EXAM: Female, 49 years old. Routine screening PERTINENT HISTORY: FAM HX PAT GMA AGE 50S, PAT COUSIN AGE 42, MAT COUSIN AGE 30S -- NO SX. TECHNIQUE: 2-D mammograms and 3-D Tomosynthesis of the breast (s) were performed. CAD was performed. COMPARISON: 10/28/2016 FINDINGS: The breast composition is composed of scattered fibroglandular density. Scattered benign calcifications are seen. No dense spiculated masses or suspicious microcalcifications are identified. No architectural distortion is identified. There is no skin thickening or retraction. There has been no significant change since the prior study. BI/SCREEN MAMM (CAD) W/UBALDO BILAT IMPRESSION: No mammographic signs of malignancy. Routine yearly mammograms recommended. ASSESSMENT CATEGORY: BIRADS Category 1: Negative. A letter regarding these results will be sent to the patient by the facility within 30 days. FOLLOW UP RECOMMENDATION: Yearly follow up mammogram recommended. (A) Approximately 10% of breast cancers are not detected by mammography. A normal mammogram should not delay biopsy of a clinically suspicious abnormality. Electronically Signed: David Medina MD at 7:43 EDT , Service support ,
== END | disposition home or self-care (01) ==
LOC: OPBI 15:43
PROVIDERS: PCP Internal Medicine; Referring Provider Internal Medicine; Visit Provider Internal Medicine
DX: Z12.31 Encounter for screening mammogram for malignant neoplasm of breast (principal)
CPT/HCPCS: 77063; 77067

== ENCOUNTER → 2019-10-01 | Outpatient (CLI) | payer OTHER, SELFPAY ==
[2019-10-01 09:08] VITALS: BMI 35.5
--- NOTE | 2019-10-01 09:15 | RAD_ITS ---
STUDY: X-RAY - CERVICAL SPINE REASON FOR EXAM: Female, 49 years old. Pain. TECHNIQUE: 4 view(s) of the cervical spine were obtained. COMPARISON: MRI of the cervical spine, 08/28/2019. FINDINGS: There are degenerative changes of the anterior atlantoaxial articulation. Normal odontoid process. Normal cervical lordosis. There is multi-level endplate spondylosis. There is multi-level degenerative disc disease with multilevel disc space narrowing. There is no evidence of acute fracture or loss of vertebral axial height. There is maintenance of normal alignment which does not alter with flexion or extension. The soft tissue structures are unremarkable. RAD/Cerv Spine 4 or 5 Views IMPRESSION: 1. Stable degenerative changes of the cervical spine. 2. No evidence of vertebral instability. Electronically Signed: Bernardo Muñoz DO at 16:52 EDT Tel [phone], Service support ,
== END | disposition home or self-care (01) ==
LOC: HPRAD 09:11
PROVIDERS: PCP Internal Medicine; Referring Provider Orthopaedic Surgery; Visit Provider Orthopaedic Surgery
DX: M54.2 Cervicalgia (principal)
CPT/HCPCS: 72050

== ENCOUNTER 2020-01-16 12:30 | Outpatient (RCR) | payer OTHER, SELFPAY ==
[2019-12-03 13:46] VITALS: BMI 35.5
--- NOTE | 2019-12-31 14:33 | HP.PTEVAL ---
Patient's Visit Information PELON ROJAS is a 49 year old F referred to Physical Therapy by ANIYA PERDOMO with a diagnosis of RIGHT KNEE. Date of Evaluation: 12/31/19 Physical Therapist: Bonita Messina, PT, Cert MDT - Visit Plan Frequency: 2x /Week Duration: 3 Weeks Plan: GAIT TRAINING. RIGHT LE STRENGTHEING. [facility] INST. - Subjective PATIENT REPORTS THE DOCTOR TOLD HER TO COME TO PT TO BUILD HER MUSCLE BACK UP. PATIENT REPORTS SHE HAS GOOD ROM EXCEPT FOR THE SWELLING AND SHE DOESN'T THINK THERAPY IS GOING TO DO ANY GOOD BECAUSE SHE HAS BEEN DOING THIS FOR YEARS. STATES HER OTHER HIP IS BAD NOW (LEFT) AND IF IT ISN'T ONE THING ITS ANOTHER. STATES SHE HAS A HX OF LEFT HIP BURSITIS AND SHE RECEIVED A CORTISONE IN IT BY DR. SOLIS BEGINNING OF DECEMBER 2019 BUT IT DIDN'T HELP. HEADING TO [place] IN FEBRUARY. SHE REPORTS HAVING HOME PT AFTER R TKR (DOS MAY 02 2019) AND IT WENT OK BUT SCAR TISSUE BUILT UP ON THE BACK OF HER KNEE CAP AND SHE HAD TO HAVE IT DEBRIDED (12/26/19). PATIENT REPORTS HER PAIN IS MUCH BETTER SINCE THE DEBRIDEMENT. PATIENT ALSO HAD A RIGHT PARTIAL KNEE REPLACEMENT 2-3 YEARS AGO. RIGHT KNEE PAIN IS RANGING 2-8/10. PMH: Bursitis (Acute). Kit-Danlos disease (Chronic). Fibromyalgia (Chronic). Osteoarthritis (Chronic). Restless leg (Chronic). Rheumatoid arthritis (Chronic). Sleep apnea (Chronic). Surgical History: h/o left shoulder surgery (Acute). H/O: hysterectomy (Inactive). History of right partial knee replacement (Inactive). Kidney stones (Inactive). S/P cholecystectomy (Inactive). back fusion (Inactive). neurostimulator (Inactive). H/O left knee arthroscopic sx. PATIENT HAS A SPINAL STIMULATOR. - Objective THIS PATIENT AMBULATES INDEP'LY INTO PT LIMPING ON THE RIGHT LE AND USING A STRAIGHT CANE. SHE HAS MODERATE RIGHT KNEE EDEMA WITH SUTURES STILL IN 2 ANTERIOR PORT HOLES. NO SIGNS OF INFECTION. CIRCUMFERENCE MEASUREMENTS: AT PATELLA - 15.5 INCHES, TOP OF INCISION - 18.75 INCHES, DISTAL INCISION 15.5 INCHES. AARTI LE LIGHT TOUCH SENSATION APPEARS INTACT AND SYMMETRICAL EXCEPT CHRONIC LEFT FOOT NUMBNESS. RIGHT KNEE ROM IN SUPINE WITH A HEEL SLIDE = FULL EXT TO 133 DEG FLEXION. STRENGTH: RIGHT: HIP 3+/5, KNEE EXT 3+/5, KNEE FLEX 4-/5, ANKLE 4/5. LEFT: HIP 4-/5, KNEE 4/5, ANKLE 4/5. TREATMENT: HEP GIVEN: QUAD SETS, HEEL SLIDES, SLR'S, SAQ'S, SUPINE HIP ABD, STANDING HIP ABD, EXT AND FLEX. STANDING HEEL/TOE RAISES AND STANDING KNEE FLEXION. - Goals Goal 1:: INDEP AND SAFE GAIT WITH LEAST ASSISTIVE DEVICE ON LEVEL SURFACES Goal Time Frame: 4-6 Weeks Goal 2:: IMPROVE FUNCTIONAL STRENGTH OF RIGHT LE Goal Time Frame: 4-6 Weeks Goal 3:: PATIENT WILL BE INDEP WITH HEP FOR CONTINUED IMPROVEMENT ONCE FORMAL PHYSICAL THERAPY CONCLUDES Goal Time Frame: 4-6 Weeks - Anticipated Interventions Patient/Client Instruction: Educate patient on: Condition, Plan of Care, Risk Factors, Benefits of Fitness Program For the Purpose of:: To improve self management Therapeutic Exercise to Include: Strength training, Gait and locomotor training For the Purpose of:: To improve muscle performance and motor function, To increase tolerance to activity/condition/position, To improve ability of physical actions for home/community/work/leisure, To improve gait and locomotor functions Cryotherapy (ice pack, ice massage): Yes For the Purpose of:: To decrease pain, To decrease swelling/inflammation Thank you for the opportunity to evaluate your patient. For Medicare and Medicare HMO plans, please review the plan of care and approve it. It will need to be FAXED BACK to us at [phone] for Medicare purposes. For Medicare only, by signing this I certify the plan of care. Please let me know if there are questions or concerns regarding this plan of care. Physician Signature: Date:
--- NOTE | 2020-03-11 10:52 | HP.PT.NRP ---
PELON ROJAS was seen in my office for initial evaluation on 12/31/19. The following Plan of Care was established for this patient: Initial Frequency: 2x /Week Initial Duration: 3 Weeks Patient/Client Instruction: Educate patient on: Condition, Plan of Care, Risk Factors, Benefits of Fitness Program For the Purpose of:: To improve self management Therapeutic Exercise to Include: Strength training, Gait and locomotor training For the Purpose of:: To improve muscle performance and motor function, To increase tolerance to activity/condition/position, To improve ability of physical actions for home/community/work/leisure, To improve gait and locomotor functions Cryotherapy (ice pack, ice massage): Yes For the Purpose of:: To decrease pain, To decrease swelling/inflammation This patient was last seen in our office 01/16/20. Pertinent comments regarding their Physical therapy will appear below: This patient has not returned to Physical Therapy and is appropriate to return to MD for further follow-up as needed. At this point I will be discontinuing this patient from physical therapy. I would be happy to see this patient again in the future if found appropriate by the physician. Thank you! Bonita Messina, PT, Cert MDT
== END 2020-01-16 19:00 | disposition home or self-care (01) ==
LOC: PT 12:30
PROVIDERS: PCP Internal Medicine
DX: M51.16 Intervertebral disc disorders with radiculopathy, lumbar region (principal); M70.62 Trochanteric bursitis, left hip; Y93.9 Activity, unspecified
CPT/HCPCS: 97110; 97162

== ENCOUNTER → 2020-07-22 | Outpatient (CLI) | payer OTHER, SELFPAY ==
[2019-12-03 13:46] VITALS: BMI 35.5
[2020-07-22 17:38] LABS: Absolute Lymphocyte Count 1.93 X10^3/uL (0.83-4.51); Absolute Neutrophil Count 3.9 X10^3/uL (2.0-7.7); Basophil# 0.03 X10^3/uL; Basophil% 0.5 % (0-1); Eosinophil# 0.17 X10^3/uL; Eosinophils% 2.6 % (0-5); Hematocrit 43.9 % (37-47); Hemoglobin 14.3 g/dL (12.0-15.0); Lymphocyte # 1.93 X10^3/ul (0.83-4.51); Lymphocyte % 29.3 % (19-41); Mean Corp Hgb Conc 32.6 g/dL (32-36); Mean Corpuscular Hgb 30.3 pg (27.0-32.0); Mean Platelet Vol. 10.1 fl (6.2-12.0); Monocyte# 0.54 X10^3/uL; Monocyte% 8.2 % (0-10); NRBC Flagged by Analyzer 0 % (0-5); Neutrophil # 3.89 X10^3/uL (2.7-7.7); Neutrophil % 59.1 % (47-70); Platelet Count 285 K/mm3 (150-450); RBC Distribution Width CV 12.6 % (11.6-14.6); RBC Distribution Width SD 43.6 fl (35.1-43.9); Red Blood Count 4.72 M/mm3 (4.2-5.4); White Blood Count 6.6 K/mm3 (4.4-11.0)
[2020-07-22 18:19] LABS: ALB/GLOB Ratio 1.2 RATIO (0.9-2.4); AST(SGOT) 24 U/L (15-37); Alanine Aminotransfer ALT/SGPT 31 U/L (13-56); Albumin, Serum 3.5 g/dL (3.2-5.0); Alkaline Phosphatase 93 U/L (45-117); Amylase 44 U/L (25-115); Anion Gap 6 (5-15); BUN 8 mg/dL (7-18); BUN/Creat Ratio 8.2 RATIO (10-20); Calcium,Total 8.4 mg/dL (8.5-10.1); Chloride 109 mmol/L (98-107); Creatinine, Serum 0.97 mg/dL (0.55-1.02); EST Glomerular Filtration Rate 64 mL/min (>60); Est Glom Filt Rate - Afr Amer 78 mL/min (>60); Globulin 2.9 g/dL (2.2-4.2); Glucose 72 mg/dL (74-106); Lipase 77 U/L (73-393); Potassium 3.1 mmol/L (3.5-5.1); Protein, Total 6.4 g/dL (6.4-8.2); Sodium Level 144 mmol/L (136-145)
== END | disposition home or self-care (01) ==
PROVIDERS: Visit Provider Internal Medicine
DX: R10.9 Unspecified abdominal pain (principal); R11.0 Nausea
CPT/HCPCS: 80053; 82150; 83690; 85025

== ENCOUNTER → 2020-10-14 06:27 | Outpatient (CLI) | payer OTHER, SELFPAY ==
[2019-12-03 13:46] VITALS: BMI 35.5
--- NOTE | 2020-10-14 06:37 | MRI_ITS ---
HISTORY: Neck pain. TECHNIQUE: Routine MRI of the cervical spine was performed. # of images incl. paperwork: 114. IV Contrast dosage and agent: None. COMPARISON: XR 10/01/2019, MR 08/28/2019. FINDINGS: VERTEBRAE: Vertebral body heights maintained. Degenerative bone marrow endplate changes particularly at C6-7. ALIGNMENT: No anterior or posterior subluxation. CORD: Morphology and signal within normal limits. SOFT TISSUES: No prevertebral fluid collection. INTERVERTEBRAL DISCS: C2-3: Minimal disc bulge. No significant central canal stenosis or foraminal narrowing. C3-4: Mild disc bulge. No smooth in central canal stenosis or foraminal narrowing. C4-5: No significant posterior disc protrusion, central canal stenosis, or foraminal narrowing. C5-6: Mild disc bulge without significant central canal stenosis or foraminal narrowing. Bilateral perineural cysts again seen. C6-7: Mild posterior disc bulge osteophyte complex without significant central canal stenosis or foraminal narrowing. Bilateral perineural cysts again seen. C7-T1: No significant posterior disc protrusion, central canal stenosis, or foraminal narrowing. OTHER: Chronic expansion of the sella with a partially empty sella configuration. MRI/Spine Cervical (Routine) IMPRESSION: Mild degenerative disc disease without significant spinal canal stenosis as described above. at 1619 Reported and signed by: Niesha Edmond MD Electronically Signed: Niesha Edmond MD at 16:18 EDT Tel , Service support ,
== END ==
PROVIDERS: PCP Internal Medicine; Referring Provider Internal Medicine; Visit Provider Internal Medicine
DX: M51.35 Other intervertebral disc degeneration, thoracolumbar region (principal); M54.2 Cervicalgia
CPT/HCPCS: 72141

== ENCOUNTER → 2020-10-19 08:12 | Outpatient (CLI) | payer OTHER, SELFPAY ==
[2019-12-03 13:46] VITALS: BMI 35.5
--- NOTE | 2020-10-19 08:20 | RAD_ITS ---
STUDY: X-RAY - ESOPHAGUS (BARIUM SWALLOW) WITH FLUOROSCOPY REASON FOR EXAM: Female, 50 years old. DYSPHAGIA / GERD TECHNIQUE: 20 view(s) of the esophagus were obtained following swallowing of barium. FLUOROSCOPY TIME (if supplied): (15 seconds) minutes/seconds COMPARISON: Comparison is made with prior study dated 04/24/2018. FINDINGS: There is no demonstrated esophageal foreign body. There is no demonstrated stricture or mucosal abnormality. Normal gastroesophageal junction, without a demonstrated hiatal hernia. Gastroesophageal reflux. The patient ingested a 12 mm tablet of barium without any difficulty. Normal visualized aortic arch and descending thoracic aorta. Normal visualized pulmonary parenchyma. There are diffuse degenerative changes of the visualized thoracic spine. RAD/Esophagus Single Contrast IMPRESSION: Gastroesophageal reflux. Electronically Signed: Calvin Lovell MD at 15:20 EDT , Service support ,
== END ==
PROVIDERS: PCP Internal Medicine; Referring Provider Internal Medicine Gastroenterology; Visit Provider Internal Medicine Gastroenterology
DX: K21.9 Gastro-esophageal reflux disease without esophagitis (principal); R13.10 Dysphagia, unspecified
CPT/HCPCS: 74220

== ENCOUNTER → 2021-02-08 14:20 | Outpatient (CLI) | payer OTHER, SELFPAY ==
--- NOTE | 2021-02-08 14:23 | US_ITS ---
STUDY: THYROID ULTRASOUND REASON FOR EXAM: Female, 50 years old. GOITER TECHNIQUE: Ultrasound evaluation of the thyroid was performed with real-time and static alfonso-scale imaging. COMPARISON: 08.22.16 FINDINGS: RIGHT LOBE: The right lobe of the thyroid gland measures 4.8x2x1.3 cm. There is a homogeneous echotexture. There is a nodule. Upper pole cysts is 2 x 2 x3 mm. The lesion is solid with regular margins and kleber nodular doppler flow. LEFT LOBE: The left lobe of the thyroid gland measures 5x1.8x1.35 cm. There is a homogeneous echotexture. There are 3 nodules. These measure 11 x 9 x 7 mm (The lesion is solid with regular margins and intra-nodular doppler flow), 3 x 3 x 2mm (The lesion is solid with regular margins and kleber nodular doppler flow), and 7 x 7x 6 mm(The lesion is solid with regular margins and intra-nodular doppler flow). ISTHMUS: The isthmus measures 4 mm. The regional lymph nodes are normal. US/Thyroid IMPRESSION: There is a RIGHT nodule which is stable. This nodule is solid or almost completely solid, anechoic, [id number], smoothly marginated and contains no echogenic foci. TI-RADS points: 2. TI-RADS category: TR2. This nodule is not suspicious and no FNA or follow-up is necessary. There are left nodules. These are only minimally enlarged in size since the prior study. This nodule is solid or almost completely solid, anechoic, [id number], smoothly marginated and contains no echogenic foci. TI-RADS points: 2. TI-RADS category: TR2. This nodule is not suspicious and no FNA or follow-up is necessary. Electronically Signed: Mark Enamorado MD at 15:08 EST , Service support ,
== END ==
PROVIDERS: PCP Internal Medicine; Referring Provider Internal Medicine; Visit Provider Internal Medicine
DX: E04.9 Nontoxic goiter, unspecified (principal)
CPT/HCPCS: 76536

== ENCOUNTER → 2021-02-11 07:42 | Outpatient (CLI) | payer OTHER, SELFPAY ==
--- NOTE | 2021-02-11 07:44 | BI_ITS ---
MAMMOGRAPHY - BILATERAL SCREENING REASON FOR EXAM: Female, 50 years old. Routine annual screening examination. PERTINENT HISTORY: Grandmother with breast cancer. TECHNIQUE: Digital bilateral breast ubaldo (3D mammographic acquisition) in the CC and MLO projections. 2-D mediolateral oblique (MLO) and craniocaudad (CC) views of both breasts were obtained. CAD: Full Field Digital Mammography with Computer Added Detection was performed. COMPARISON: Comparison is made with prior study dated 09/25/2019 and 10/28/2016. FINDINGS: Breast Composition: There are scattered areas of fibroglandular density. There are no dominant masses or suspicious calcifications. Stable small benign appearing bilateral axillary lymph nodes. No other significant abnormalities are identified. There has been no significant change since the prior study. BI/SCRN MAMM (CAD)W/UBALDO BILAT IMPRESSION: Stable bilateral screening mammogram. Yearly follow-up mammogram recommended. (A) ASSESSMENT CATEGORY: BIRADS Category 2: Benign. A letter regarding these results will be sent to the patient by the facility within 30 days. Approximately 10% of breast cancers are not detected by mammography. A normal mammogram should not delay biopsy of a clinically suspicious abnormality. [id number] Electronically Signed: Calvin Lovell MD at 10:00 EST , Service support ,
== END ==
PROVIDERS: PCP Internal Medicine; Referring Provider Internal Medicine; Visit Provider Internal Medicine
DX: Z12.31 Encounter for screening mammogram for malignant neoplasm of breast (principal)
CPT/HCPCS: 77063; 77067

== ENCOUNTER → 2021-07-01 | Outpatient (CLI) | payer OTHER, SELFPAY ==
--- NOTE | 2021-07-01 14:00 | BD_ITS ---
STUDY: DUAL ENERGY X-RAY ABSORPTIOMETRY / DXA REASON FOR EXAM: Female, 50 years old. M810 TECHNIQUE: Bone Mineral Density (BMD) measurements of lumbar spine and bilateral hips were obtained. COMPARISON: Comparison is made with prior study dated 01/15/2019. FINDINGS: Lumbar Spine (L1-L4): g/cm2 (0.736) / T-score (-2.6) / Z-score (-1.7) Findings are suggestive of osteoporosis with a high fracture risk. Left Femur Total: g/cm2 (0.734) / T-score (-1.7) / Z-score (-1.2) Left Femoral Neck: g/cm2 (0.617) / T-score (-2.1) / Z-score (-1.2) Right Femur Total: g/cm2 (0.688) / T-score (-2.1) / Z-score (-1.5) Right Femoral Neck: g/cm2 (0.588) / T-score (-2.4) / Z-score (-1.5) The T-Scores on the most recent prior examination were: Lumbar Spine (L1-L4): There has been worsening of bone density since the previous examination. Left Femur Total: which represents a worsening of 0.7%. Right Femur Total: which represents an improvement of 4.2%. BD/Dexa Bone Density Study IMPRESSION: The patient is considered osteoporotic as outlined below according to World [employer] Organization (WHO) criteria with a high fracture risk. There has been worsening of bone density since the previous examination. Reference Information: The T-score is the number of standard deviations above or below the standard which is normal for young adults at their peak bone mineral density. The World Health Organization (WHO) interprets the T-scores as follows: Above -1 Normal bone density Between -1 and -2.5 Osteopenia Equal to / or below -2.5 Osteoporosis As a practical clinical guideline, osteopenia may be graded as follows: Mild -1 through -1.5 Moderate -1.6 through -2.0 Severe -2.1 through -2.4 The Z-score is the number of standard deviations above or below age-matched controls. A Z-score of less than -1.5 would be considered abnormal. References: 1. NIH Osteoporosis and Related Bone Diseases www osteo.org 2. International Society for Clinical Densitometry www iscd.org 3. National Osteoporosis Foundation www nof.org Electronically Signed: Calvin Lovell MD at 15:39 EDT ,
== END | disposition home or self-care (01) ==
PROVIDERS: PCP Internal Medicine; Visit Provider Internal Medicine
DX: M81.0 Age-related osteoporosis without current pathological fracture (principal)
CPT/HCPCS: 77080

== ENCOUNTER → 2021-07-02 | Outpatient (CLI) | payer OTHER, SELFPAY ==
[2021-07-02 13:22] VITALS: BP 143/78; PULSE 92; RESP 16; TEMP 36.8; O2SAT 100; BMI 31.3
[2021-07-02] MEDS: Zoledronic Acid 5 MG 100 ML 300 MG IV (13:38)
[2021-07-02 14:02] VITALS: BP 108/66; PULSE 91
== END | disposition home or self-care (01) ==
LOC: MEDOUTP 13:11
PROVIDERS: PCP Internal Medicine; Referring Provider Internal Medicine; Visit Provider Internal Medicine
DX: M81.0 Age-related osteoporosis without current pathological fracture (principal)
CPT/HCPCS: 96365; J3489

== ENCOUNTER → 2021-07-05 | Outpatient (CLI) | payer OTHER, SELFPAY ==
--- NOTE | 2021-07-05 16:24 | US_ITS ---
STUDY: COMPLETE RENAL ULTRASOUND EXAMINATION 1631 HOURS ON 07/05/2021 REASON FOR EXAM: 50-year-old female with kidney stones. TECHNIQUE: Ultrasound evaluation of the kidneys was performed with real-time and static carl-scale imaging. COMPARISON: None. FINDINGS: Both kidneys are of normal size and configuration. The right kidney measures 11.8 cm in length by 4.6 images AP diameter by 5.8 cm in transverse diameter. It has a normal cortical thickness of 15 mm. There is no evidence of right renal cystic or solid mass lesions, or right renal calcification or calculi. There is no evidence of obstructive uropathy or hydronephrosis. There may be a duplicated right kidney. The left kidney measures 10.5 cm length by 5.1 cm centimeter by 5.2 examination transverse diameter. It has a normal 16 mm thick cortex. There is no evidence of cystic or solid mass lesions. There is no identification of calcifications or calculi. No obstructive uropathy or hydronephrosis. There is no identification of ureteral dilatation. Bilateral ureteral urine jets are visualized; there is no evidence of ureteral obstruction.. There is a normal bladder without cystic or solid mass lesions or wall thickening. US/Kidney and Bladder IMPRESSION: 1. Both kidneys are normal size and configuration and are without renal cortical atrophy. 2. No hydronephrosis or obstructive uropathy. 3. No identification of renal calcifications or calculi, nor evidence of cystic or solid masses. 4. Questionable duplicated right kidney. 5. No ureteral dilatation or obstruction. 6. Normal bladder. Electronically Signed: Filiberto Gastelum MD at 1:21 EDT ,
== END | disposition home or self-care (01) ==
PROVIDERS: PCP Internal Medicine; Visit Provider Urology
DX: N20.0 Calculus of kidney (principal)
CPT/HCPCS: 76770

== ENCOUNTER 2021-11-22 09:48 | Outpatient (RCR) | payer OTHER, SELFPAY | END 2021-12-03 23:59 | LOC: NS 09:48 | PROVIDERS: PCP Internal Medicine; Referring Provider Internal Medicine; Visit Provider Internal Medicine | DX: Z71.3 Dietary counseling and surveillance (principal); E66.9 Obesity, unspecified; K31.84 Gastroparesis | CPT/HCPCS: 97802 ==

== ENCOUNTER 2022-02-01 17:24 | Emergency (ER) | payer OTHER, SELFPAY ==
[2022-02-01 17:25] VITALS: BP 130/63; PULSE 93; RESP 16; TEMP 36.3; O2SAT 99; BMI 33.6
[2022-02-01 17:27] VITALS: BP 133/72; PULSE 68; RESP 16; TEMP 37.1; O2SAT 98
--- NOTE | 2022-02-01 18:07 | CT_ITS ---
STUDY: CT ABDOMEN AND PELVIS WITHOUT CONTRAST REASON FOR EXAM: Female, 51 years old. Kidney stone. RADIATION DOSAGE (If Supplied By Facility): CTDIvol = ( 17.33 ) mGy, DLP = ( 1249.63 ) mGycm TECHNIQUE: Transaxial images were obtained from the dome of the diaphragm to the symphysis pubis without oral contrast, and without intravenous contrast. Sagittal and coronal images were reconstructed. Individualized dose optimization techniques were used for this CT. COMPARISON: July 18, 2017. FINDINGS: The visualized lung bases are unremarkable. The visualized portions of the heart are within normal limits. Normal liver. There are surgical clips in the gallbladder fossa consistent with a prior cholecystectomy. Normal spleen. Normal pancreas. Normal bilateral adrenal glands. Normal right kidney. Normal left kidney. Normal ureters. Normal visualized stomach. Normal small intestine. Normal colon. The appendix is visualized and appears normal. Normal abdominal aorta. Normal inferior vena cava. Normal retroperitoneum. Urinary bladder is poorly distended but otherwise unremarkable. Status post hysterectomy. There is fluid in the vaginal vault. Phleboliths are seen in the pelvis without lymphadenopathy. No free air or free fluid is seen within the peritoneal cavity. Normal abdominal wall. There are diffuse degenerative changes of the visualized lumbar spine. There is posterior fusion of L5-S1 with L5 laminectomy. There is a dorsal column stimulator in the soft tissues of the left back electrodes entering the spinal canal at the at the T8-[address]/Abdomen/Pelvis without Cont IMPRESSION: 1. No evidence of renal, ureteral or urinary bladder abnormality. 2. Status post hysterectomy and cholecystectomy. 3. Normal appendix. 4. No evidence of acute intra-abdominal or pelvic process. 5. Surgical changes of the lumbar spine. 6. Dorsal column stimulator. Electronically Signed: Bernardo Muñoz DO at 18:54 EST ,
--- NOTE | 2022-02-01 18:10 | EX.ED.DYSGE1 ---
HPI History of Present Illness Chief Complaint: Abd Pain Informant: patient Onset/Context/Timing Onset: Days (7 days) Context: Gradual Onset Timing: Waxes and wanes Current Severity: Moderate Maximum Severity: Severe Narrative Narrative: Patient present secondary to right flank pain. She is a history of kidney stones. She was seen by Dr. Casas today and sent in for kidney stone work-up. [facility] Medical History Bursitis Kit-Danlos disease Failed total knee, right Fibromyalgia Gastroparesis Osteoarthritis Raynauds disease Restless leg Rheumatoid arthritis Sleep apnea Home Medications pregabalin 150 mg capsule (Lyrica) 100 mg PO BID PAIN 09/21/17 [History Last Taken Unknown] omeprazole 40 mg capsule,delayed release 40 mg PO BID GERD 10/18/17 [History Last Taken 10/25/17 07:00] duloxetine 60 mg capsule,delayed release 60 mg PO DAILY 10/01/19 [History Last Taken Unknown] cannabidiol 100 mg/mL oral solution 5 mg/kg PO BID 12/03/19 [History Last Taken Unknown] ondansetron HCl 4 mg tablet 4 mg PO PRN PRN Nausea 02/01/22 [History Last Taken Unknown] phenazopyridine 200 mg tablet (Pyridium) 200 mg PO BID PRN PRN Pain #10 tabs 02/01/22 [Rx Last Taken Unknown] sulfamethoxazole 800 mg-trimethoprim 160 mg tablet (Bactrim DS) 1 tab PO BID #20 tabs 02/01/22 [Rx Last Taken Unknown] tizanidine 4 mg tablet 4 mg PO QHS 02/01/22 [History Last Taken Unknown] Allergy/AdvReac Type Severity Reaction Status Date / Time ciprofloxacin [From Cipro] Allergy Hives Verified 02/01/22 17:27 ciprofloxacin HCl Allergy Hives Verified 02/01/22 17:27 [From Cipro] adhesive AdvReac Rash Verified 02/01/22 17:27 diphenhydramine AdvReac Other Verified 02/01/22 17:27 [From Benadryl] tagaderm patches AdvReac Rash Uncoded 02/01/22 17:27 Surgical History back fusion h/o left shoulder surgery H/O: hysterectomy History of partial knee replacement Kidney stones neurostimulator S/P cholecystectomy Total knee replacement status Social History Smoking Status: Never smoker ROS ROS ED Constitutional Constitutional ED: Denies chills or fever(s) Eyes Eyes: Denies change in vision or discharge from eye(s) ENT ENT ED: Denies discharge from eye(s), rhinorrhea or sore throat Cardiovascular Cardiovascular: Denies chest pain or palpitations Respiratory/Chest Respiratory/Chest: Denies cough or dyspnea Gastrointestinal Gastrointestinal: Reports abdominal pain; Denies diarrhea, nausea or vomiting Genitourinary Genitourinary ED: Reports difficulty urinating and urinary frequency; Denies dysuria Musculoskeletal Musculoskeletal: Reports back pain; Denies extremity pain Integumentary Denies Abrasions or rash Neurologic Neurologic: Denies headache(s) or weakness Psychiatric Psychiatric: Denies anxiety or depression Allergic/Immunologic Allergic/Immunologic ED: Denies lip swelling or urticaria EXAM Physical Exam Const Vital Signs: 02/01/22 17:25 02/01/22 17:27 Temperature 97.3 F L 98.7 F Temperature Source Temporal Temporal Pulse Rate 93 68 Respiratory Rate 16 16 Blood Pressure 130/63 H 133/72 H Blood Pressure Mean 85 92 Pulse Ox 99 98 Oxygen Delivery Method Room Air Room Air Positive well nourished and well developed General Appearance ED: well developed HEENT Reports normocephalic and head/scalp atraumatic Eyes PERRL and EOMs intact bilaterally Neck supple Chest Wall inspection of chest normal and palpation of chest normal Resp normal respiratory effort and clear to auscultation bilaterally Cardio regular rate and regular rhythm GI GI Narrative: Abdomen is soft with no reproducible tenderness. Palpation: soft Back/Spine General Back: CVA tenderness right Extremity normal to inspection Neuro oriented x3 and no sensory deficits noted Sensorium / Orientation: alert Motor Exam: strength 5/5 throughout Psych mental status grossly normal Skin no rashes or lesions noted MDM MDM MDM Narrative Medical decision making narrative: Patient given morphine, Toradol, Zofran, IV fluids. Lab work, urinalysis, CT flank obtained. Lab Data Attestation: I reviewed the patient's lab results. Labs: Laboratory Results - last 24 hr 02/01/22 02/01/22 02/01/22 18:20 18:20 19:22 WBC 8.8 RBC 4.71 Hgb 14.3 Hct 43.2 MCV 91.7 MCH 30.4 MCHC 33.1 RDW Std Deviation 42.3 RDW Coeff of Kalin 12.5 Plt Count 299 MPV 9.5 Immature Gran % (Auto) 0.300 Neut % (Auto) 63.4 Lymph % (Auto) 27.1 [place] % (Auto) 6.2 Eos % (Auto) 2.4 Baso % (Auto) 0.6 Absolute Neuts (auto) 5.6 Absolute Lymphs (auto) 2.39 Nucleated RBC % 0 Sodium 142 Potassium 3.5 Chloride 108 H Carbon Dioxide 30.0 Anion Gap 4 L BUN 8 Creatinine 1.04 H Estim Creat Clear Calc 61.53 Est GFR (MDRD) Af Amer 72 Est GFR (MDRD) Non-Af 59 L BUN/Creatinine Ratio 7.7 L Glucose 93 Calcium 8.5 Urine Color Yellow Urine Clarity Sl. Cloudy Urine pH 6.5 Ur Specific [place] 1.015 Urine Protein 15 H Urine Glucose (UA) Normal Urine Ketones Negative Urine Occult Blood 150 H Urine Nitrite Negative Urine Bilirubin Negative Urine Urobilinogen Normal Ur Leukocyte Esterase 100 H Urine RBC 5-10 SEEN Urine WBC 10-25 SEEN Ur Squamous Epith Cells 0-5 SEEN Urine Bacteria RARE Urine Mucus 0 SEEN Radiography Diagnostic Testing: Clinical Impression(s) from Imaging Studies Abdomen/Pelvis CT 02/01/22 18:07 IMPRESSION: 1. No evidence of renal, ureteral or urinary bladder abnormality. 2. Status post hysterectomy and cholecystectomy. 3. Normal appendix. 4. No evidence of acute intra-abdominal or pelvic process. 5. Surgical changes of the lumbar spine. 6. Dorsal column stimulator. Electronically Signed: Bernardo Muñoz at 18:54 EST Reading Location ID and State: [address] [place] [address] Tel [phone], Service support , Treatment and Re-Evaluation Narrative: CBC and chemistry studies unremarkable. Renal function is normal. Urinalysis reveals 10-25 white cells with rare bacteria. No nitrites. Dr. aCsas already sent a urine culture earlier today. CT of the abdomen pelvis reveals no evidence of abnormality. Normal appendix is noted. Test results are discussed with patient as well as Dr. Casas. She will be treated with a course of Bactrim. Because the patient does have pain into the flank I will cover her with a longer course to cover pyelonephritis. She will also be given Pyridium. Discharge Plan Triage Chief Complaint: Abd Pain ED Provider: Thelma Covington Dx/Rx/DC Orders Clinical Impression: Pyelonephritis Instructions: ED Pyelonephritis, Female (Adult) Prescriptions: New sulfamethoxazole-trimethoprim [Bactrim DS] 800-160 mg tablet 1 tab PO BID Qty: 20 0RF phenazopyridine [Pyridium] 200 mg tablet 200 mg PO BID PRN PRN (Reason: Pain) Qty: 10 0RF No Action pregabalin [Lyrica] 150 mg capsule 100 mg PO BID duloxetine 60 mg capsule,delayed release(DR/EC) 60 mg PO DAILY cannabidiol 100 mg/mL solution 5 mg/kg PO BID omeprazole 40 MG capsule,delayed release(DR/EC) 40 mg PO BID tizanidine 4 mg tablet 4 mg PO QHS Label Comments: TAKE 1/2 TO 1 TABLET UP TO THREE TIMES A DAY NEEDED FOR SPASM ondansetron HCl 4 mg tablet 4 mg PO PRN PRN (Reason: Nausea) Label Comments: TAKE 1 TABLET BY MOUTH EVERY 6 HOURS NEEDED Primary Care Provider: La Cordero Referrals: La Cordero MD [Primary Care Provider] - Lauren Casas MD [Med Staff - Active Staff] - 5-7 Days Disposition Disposition: Home, Self Care
[2022-02-01] MEDS: Ondansetron 4 MG/2 ML Vial IV (18:19)
[2022-02-01] MEDS: Ketorolac 30 MG/ML Syringe IV (18:19)
[2022-02-01] MEDS: Morphine 4 MG/ML Syringe IV (18:20)
[2022-02-01] MEDS: 0.9% Normal Saline 1,000 ML 150 ML IV (18:24)
[2022-02-01 18:28] LABS: Absolute Lymphocyte Count 2.39 X10^3/uL (0.83-4.51); Absolute Neutrophil Count 5.6 X10^3/uL (2.0-7.7); Basophil# 0.05 X10^3/uL; Basophil% 0.6 % (0-1); Eosinophil# 0.21 X10^3/uL; Eosinophils% 2.4 % (0-5); Hematocrit 43.2 % (37-47); Hemoglobin 14.3 g/dL (12.0-15.0); Lymphocyte # 2.39 X10^3/ul (0.83-4.51); Lymphocyte % 27.1 % (19-41); Mean Corp Hgb Conc 33.1 g/dL (32-36); Mean Corpuscular Hgb 30.4 pg (27.0-32.0); Mean Corpuscular Volume 91.7 fL (81-99); Mean Platelet Vol. 9.5 fl (6.2-12.0); Monocyte# 0.55 X10^3/uL; Monocyte% 6.2 % (0-10); NRBC Flagged by Analyzer 0 % (0-5); Neutrophil # 5.59 X10^3/uL (2.7-7.7); Neutrophil % 63.4 % (47-70); Platelet Count 299 K/mm3 (150-450); RBC Distribution Width CV 12.5 % (11.6-14.6); RBC Distribution Width SD 42.3 fl (35.1-43.9); Red Blood Count 4.71 M/mm3 (4.2-5.4); White Blood Count 8.8 K/mm3 (4.4-11.0)
[2022-02-01 18:40] LABS: Anion Gap 4 (5-15); BUN 8 mg/dL (7-18); BUN/Creat Ratio 7.7 RATIO (10-20); Calcium,Total 8.5 mg/dL (8.5-10.1); Chloride 108 mmol/L (98-107); Creatinine, Serum 1.04 mg/dL (0.55-1.02); EST Glomerular Filtration Rate 59 mL/min (>60); Est Glom Filt Rate - Afr Amer 72 mL/min (>60); Estimated Creatinine Clearance 61.53 ml/min; Glucose 93 mg/dL (74-106); Potassium 3.5 mmol/L (3.5-5.1); Sodium Level 142 mmol/L (136-145)
[2022-02-01 19:29] LABS: Mucous, Urine 0 SEEN /hpf (<or=2+)
[2022-02-01 19:31] LABS: Color, Urine Yellow (Yellow); Glucose, Dipstick Normal (Normal); Ketone-Dipstick Negative (Negative); Leukocyte Esterase-Dipstick 100 /ul (Negative); Nitrite-Dipstick Negative (Negative); Occult Blood-Urine 150 /ul (Negative); Protein-Dipstick 15 mg/dl (Negative); Specific Gravity, Urine 1.015 (1.002-1.030); Urine Bilirubin Dipstick Negative (Negative); Urine Clarity Sl. Cloudy (Clear); Urine Urobilinogen Normal (Normal); Urine pH 6.5 (5.0 - 8.0)
[2022-02-01 19:37] LABS: Bacteria RARE /hpf (None Seen); Red Blood Cells-Urine 5-10 SEEN /hpf (0-5); Squamous Epithelial Cells - UA 0-5 SEEN /hpf (5-10); White Blood Cells 10-25 SEEN /hpf (0-5)
[2022-02-01] MEDS: Smz/Tmp Ds Tablet 1 TABLET PO (20:25)
[2022-02-01] MEDS: Phenazopyridine 95 MG Tablet 190 MG PO (20:25)
[2022-02-01 20:28] VITALS: BP 153/82; PULSE 80; PULSE 82; RESP 18; TEMP 37; O2SAT 98
== END 2022-02-01 20:31 | disposition home or self-care (01) ==
PROVIDERS: Emergency Provider Emergency Medicine; PCP Internal Medicine; Visit Provider Emergency Medicine
DX: N12 Tubulo-interstitial nephritis, not specified as acute or chronic (principal); R10.9 Unspecified abdominal pain; Z87.442 Personal history of urinary calculi
CPT/HCPCS: 74176; 80048; 81001; 85025; 96361; 96374; 96375; 99284; J7030; A4216; J2405

== ENCOUNTER → 2022-05-27 | Outpatient (CLI) | payer OTHER, SELFPAY ==
--- NOTE | 2022-05-28 09:11 | STRESSREP ---
Stress Test Report Pharmacologic myocardial perfusion stress test. 51-year-old lady with a history of chest discomfort Resting EKG demonstrates sinus rhythm with a rate of 75 bpm. Resting blood pressure is 126/78 mmHg. 0.4 mg of regadenoson was infused per usual protocol followed by rapid intravenous saline flush injection. Continuous EKG monitoring was performed. The maximum heart rate was 125 bpm which was 74% of max impacted heart rate the maximum workload was 1 metabolic equivalent. At rest there were no ST or T wave changes noted to suggest ischemia and at peak infusion nonspecific ST changes were noted which did not meet the criteria for ischemia. No clinical angina is noted. The final blood pressure was 124/70 mmHg. Myocardial perfusion protocol. 14.5 mCi of technetium 99m sestamibi was injected at rest. 0.4 mg of regadenoson was infused per usual protocol. At peak infusion 44.4 mCi of technetium 99m sestamibi was injected stress images were obtained stress and rest images were reconstructed and compared in the short axis vertical long and horizontal long axis. Gated images were also obtained. Perfusion SPECT analysis: Review of the stress images demonstrate normal uptake of tracer noted in all areas of the myocardium. The resting images similar demonstrated normal uptake of tracer noted in all areas of the myocardium. No areas of reversibility are noted to suggest ischemia and no previous infarct is noted. Gated SPECT analysis: The gated ejection fraction is 78%. Conclusion: Normal pharmacologic myocardial perfusion stress test. Preserved ejection fraction.
== END | disposition home or self-care (01) ==
LOC: CVS 06:23
PROVIDERS: PCP Internal Medicine; Visit Provider Internal Medicine
DX: R07.9 Chest pain, unspecified (principal); R79.89 Other specified abnormal findings of blood chemistry; E78.41 Elevated Lipoprotein(a); R79.82 Elevated C-reactive protein (CRP)
CPT/HCPCS: 78452; 93017; A9500; A4216; J2785

== ENCOUNTER → 2022-05-31 | Outpatient (CLI) | payer OTHER, SELFPAY ==
--- NOTE | 2022-05-31 11:32 | BI_ITS ---
MAMMOGRAPHY - BILATERAL SCREENING REASON FOR EXAM: Female, 51 years old. Routine annual screening examination. PERTINENT HISTORY: Grandmother with breast cancer. TECHNIQUE: Digital bilateral breast ubaldo (3D mammographic acquisition) in the CC and MLO projections. 2-D mediolateral oblique (MLO) and craniocaudad (CC) views of both breasts were obtained. CAD: Full Field Digital Mammography with Computer Added Detection was performed. COMPARISON: Comparison is made with prior study dated February 11, 2021 and September 25, 2019. FINDINGS: Breast Composition: The breasts are almost entirely fatty. There are no dominant masses or suspicious calcifications. Stable small benign-appearing bilateral axillary lymph nodes. No other significant abnormalities are identified. There has been no significant change since the prior study. BI/SCRN MAMM (CAD)W/UBALDO BILAT IMPRESSION: Stable bilateral screening mammogram. Yearly follow-up mammogram recommended. (A) ASSESSMENT CATEGORY: BIRADS Category 2: Benign. A letter regarding these results will be sent to the patient by the facility within 30 days. Approximately 10% of breast cancers are not detected by mammography. A normal mammogram should not delay biopsy of a clinically suspicious abnormality. [id number] Electronically Signed: Calvin Lovell MD at 13:27 EDT ,
== END | disposition home or self-care (01) ==
LOC: OPBI 11:31
PROVIDERS: PCP Internal Medicine; Referring Provider Internal Medicine; Visit Provider Internal Medicine
DX: Z12.31 Encounter for screening mammogram for malignant neoplasm of breast (principal)
CPT/HCPCS: 77063; 77067

== ENCOUNTER 2022-07-04 13:19 | Outpatient (CLI) | payer OTHER, SELFPAY ==
[2022-07-04 13:46] VITALS: BP 125/76; PULSE 79; RESP 16; TEMP 35.8; O2SAT 97; BMI 32.8
[2022-07-04] MEDS: 0.9% NaCl Peripheral Flush Adult/Peds IV (13:57)
[2022-07-04] MEDS: Zoledronic Acid 5 MG 100 ML 400 MG IV (14:02)
[2022-07-04 14:20] VITALS: BP 127/78; PULSE 66; RESP 16; TEMP 36.3; O2SAT 99
== END 2022-07-04 13:20 | disposition home or self-care (01) ==
LOC: MEDOUTP 13:20
PROVIDERS: PCP Internal Medicine; Referring Provider Internal Medicine; Visit Provider Internal Medicine
DX: M81.0 Age-related osteoporosis without current pathological fracture (principal)
CPT/HCPCS: 96374; A4216; J3489

== ENCOUNTER 2022-07-14 11:00 | Outpatient (RCR) | payer OTHER, SELFPAY ==
--- NOTE | 2022-06-28 10:59 | HP.PTEVAL ---
Patient's Visit Information PELON ROJAS is a 51 year old F referred to Physical Therapy by Dr. Mayank Nava MD with a diagnosis of DORSAL BACK PAIN. Date of Evaluation: 06/27/22 Physical Therapist: Bonita Messina PT, Cert MDT - Visit Plan Frequency: 2-3x /Week Duration: 4-6 Weeks Plan: NO US - STIMULATOR. CONSIDER STM. POSTURE CORRECTION/STRENGTHENING, INSTRUCTION IN APPROPRIATE BODY MECHANICS AND ACTIVITY MODIFICATIONS. AARTI UE ROM, STRETCHING AND STRENGTHENING. HEP INSTRUCTION. - Subjective Work/Leisure: UNEMPLOYEED. Disability: YES. Present symptoms: UPPER BACK AND NECK PAIN. INTERMITTENT AARTI HAND NUMBNESS. AARTI UE TINGLING - CONSTANT. INTERMITTENT CHEST PRESSURE. R HAND WEAKNESS. Present since: CHRONIC. Pain Scale: Worst - 10/10 Least - 5/10. Currently: 5/10. Commenced as a result of: NO APPARENT REASON. Worse: TURNING HEAD TOO FAR TO THE RIGHT, WALKING, LOAD NOISE, TRYING TO CARRY MORE THAN 5-10 LBS. Better: SITTING IN ZERO GRAVITY CHAIR. Disturbed sleep: YES. SHLD'S DISLOCATE IN SDLY AT NIGHT. Previous history/Previous treatment: PAIN MGMT INJECTIONS. MASSAGE. Dizziness: NOT DUE TO THIS. Tinnitis: NO. Nausea: NOT FROM THIS. Shortness of Breath: NO. Difficulty Swollowing: NOT DUE TO THIS. Gait: WALKING WITHOUT AD'S BUT CAUSES INCREASED PAIN. HURTS TO USE AD'S. Unexplained weight loss: NO. Imaging: X-RAYS OF THORACIC SPINE LAST WEEK - HAS NOT REC'D RESULTS YET. DR. MARC ORDERED THE X-RAYS. PMH/Recent major surgery: Bursitis. Kit-Danlos disease (Chronic). Fibromyalgia (Chronic). Osteoarthritis (Chronic). Restless leg (Chronic). Rheumatoid arthritis (Chronic). Sleep apnea (Chronic). Surgical History: h/o left shoulder surgery. H/O: hysterectomy History of right partial knee replacement AND then full TKR R 2019. Kidney stones. S/P cholecystectomy. back fusion. PATIENT HAS A SPINAL STIMULATOR - not active. POTS. GASTROPARESIS. AUTOIMMUNE DZ - MCAS. OSTEOPENIA. - Objective Sitting Posture/Standing Posture: Active Correction of posture: Other Observations: INDEP GAIT AND TRANSFERS WITHOUT AD TODAY. Sensory deficit: AARTI UE LIGHT TOUCH SENSATION GROSSLY INTACT AND SYMMETRICAL. ROM deficit: L UE WFL. R SHLD ELEVATION APPROX 25% LIMITED. Motor deficit: AARTI UE WEAKNESS R > LEFT. PATIENT IS R HAND DOMINANT WITH A R CLIENT SERVICES ACCOUNT MANAGER STRENGTH OF 38 LBS AND LEFT 49 LBS. R SHLD 3-/5, ELBOW 4-/5. L SHLD 4-/5, ELBOW 4/5. Cervical Mvmt Loss: Flex: NIL. Pro: NIL. Ext: MOD. Ret: MOD. RSB: MIN. LSB: MIN. R Rot: MIN. L Rot: NIL. THORACIC MVMT LOSS: R ROTATION - MODERATE, L ROTATION - MINIMAL. PATIENT C/O FEELING LIGHT HEADED AFTER TESTING (WHICH PASSED QUICKLY WITH REST - PATIENT REPORTS SHE DEALS WITH THIS ALL THE TIME) AND REPORTS INCREASED UPPER BACK PAIN WITH TESTING AARTI R > LEFT. Postural strength: POOR. Palpation: NO ACUTE NECK OR THORACIC TENDERNESS WITH LIGHT PALPATION. TREATMENT: NEUROMUSCULAR REEDUCATION - RETRAINING OF MVMT AND POSTURE FOR SITTING, LYING AND STANDING ACTIVITIES. - Balance/Special Test Scores Oswestry Neck Score: 25 - Goals Goal 1:: DECREASE C/O NECK AND UPPER BACK PAIN. Goal 2:: IMPROVE PERSONAL CARE, LIFTING, READING, SLEEP, DRIVING AND RECREATIONAL FUNCTION. Goal Time Frame: 4-6 Weeks Goal 3:: INSTRUCT IN PROPHYLAXIS Goal Time Frame: 4-6 Weeks - Anticipated Interventions Patient/Client Instruction: Educate patient on: Condition, Plan of Care, Risk Factors For the Purpose of:: To improve self management Therapeutic Exercise to Include: Strength training, Body mechanics, Postural training, Flexibilty training, Neuromotor development, Scapular Strength/Stabilization For the Purpose of:: To decrease pain, To increase ROM, To improve muscle performance and motor function, To increase tolerance to activity/condition/position, To improve ability of physical actions for home/community/work/leisure Manual Therapy Techniques to Include: Soft tissue mobilization For the Purpose of:: To decrease pain, To improve nutrient delivery to tissue Cryotherapy (ice pack, ice massage): Yes Thermo therapy (hot pack): Yes Ultrasound (thermal/non thermal): Yes For the Purpose of:: To decrease pain, To improve nutrient delivery to tissue Thank you for the opportunity to evaluate your patient. For Medicare and Medicare HMO plans, please review the plan of care and approve it. It will need to be FAXED BACK to us at [phone] for Medicare purposes. For Medicare only, by signing this I certify the plan of care. Please let me know if there are questions or concerns regarding this plan of care. Physician Signature: Date:
--- NOTE | 2022-07-14 11:25 | HP.PTDCSUM ---
It has been my pleasure to treat PELON ROJAS referred by Dr. Mayank Nava MD, with the diagnosis of DORSAL BACK PAIN for a total of 5 visit(s). Discharge Date: Please see the following information for a summary of their discharge status. Subjective: PATIENT RERPOTS SHE IS HAVING MORE HAND TINGLING AND SHE THINKS IT MIGHT BE FROM THE NEW SHLD EX'S LAST VISIT. REPORTS COMPLIANCE WITH AND GOOD TOLERANCE OF OTHER EX'S BUT NOT GETTING BETTER OVER-ALL. NECK Pain Intensity (Out of 10): 4 UPPER BACK Pain Intensity (Out of 10): 4 UE'S Pain Intensity (Out of 10): 0 % Improvement: 0 Objective/Function: PATIENT TOLERATED NEW EX'S IN CLINIC VERY WELL TODAY AND REPORTED PAIN RELIEF WITH THEM. OVER-ALL SHE IS NOT IMPROVING. SHE IS INDEP WITH A HEP BUT SHE IS ONLY ABLE TO TOLERATE VERY LIGHT EX. PHYSICIAN FOLLOW UP RECOMMENDED. PATIENT AGREEABLE. Goal 1:: DECREASE C/O NECK AND UPPER BACK PAIN. Goal Progress: Not Progressing Goal 2:: IMPROVE PERSONAL CARE, LIFTING, READING, SLEEP, DRIVING AND RECREATIONAL FUNCTION. Goal Progress: Not Progressing Goal 3:: INSTRUCT IN PROPHYLAXIS Goal Progress: INDEP WITH HEP Plan: D/C TO HEP. PATIENT AGREEABLE. PHYSICIAN RE-ASSESSMENT RECOMMENDED. If there are questions or concerns regarding this patient's physical therapy, please feel free to call me at [phone]. Thank you for the referral of this patient. Sincerely, Bonita Messina, PT, Cert MDT Balance/Gait/Functional tests - Balance/Special Test Scores Oswestry Neck Score: 25
== END 2022-07-14 19:00 | disposition home or self-care (01) ==
LOC: PT 11:00
PROVIDERS: PCP Internal Medicine; Referring Provider Anesthesiology Pain Medicine; Visit Provider Anesthesiology Pain Medicine
DX: M47.27 Other spondylosis with radiculopathy, lumbosacral region; M51.37 Other intervertebral disc degeneration, lumbosacral region; M96.1 Postlaminectomy syndrome, not elsewhere classified
CPT/HCPCS: 97112; 97162; 97530

== ENCOUNTER → 2022-07-15 | Outpatient (CLI) | payer OTHER, SELFPAY ==
--- NOTE | 2022-07-15 17:30 | MRI_ITS ---
STUDY: MRI LUMBAR SPINE WITHOUT CONTRAST REASON FOR EXAM: Female, 51 years old. POST LAMI SYNDROME TECHNIQUE: Standardized fat and water weighted pulse sequences were obtained in the sagittal and axial planes. COMPARISON: Lumbar spine x-rays November 29, 2019 FINDINGS: T12-L1: Normal endplates. Normal disc height, hydration and morphology. Normal bilateral facet joints. Normal central canal and bilateral lateral recesses. Normal bilateral intervertebral neural foramina. Normal lumbar lordosis. There is no substantial scoliosis. Normal conus medullaris that terminates at T12-L1 L1-2: Normal endplates. Normal disc height, hydration and morphology. Normal bilateral facet joints. Normal central canal and bilateral lateral recesses. Normal bilateral intervertebral neural foramina. L2-3: Normal endplates. Normal disc height, hydration and morphology. Normal bilateral facet joints. Normal central canal and bilateral lateral recesses. Normal bilateral intervertebral neural foramina. L3-4: Normal endplates. Normal disc height, hydration and normal morphology.. Mild facet arthropathy. Normal central canal and bilateral lateral recesses. Normal bilateral intervertebral neural foramina L4-5: Normal endplates. Normal disc height, desiccation and minimal annular bulge.. Mild facet arthropathy.. Normal central canal and bilateral lateral recesses.. Moderate bilateral neural foraminal encroachment. L5-S1: Status post bilateral laminectomy and posterior fusion degenerative endplate changes.. Normal disc height, desiccation and normal morphology. Normal bilateral facet joints. Normal central canal and bilateral lateral recesses. Normal bilateral intervertebral neural foramina. Tarlov cyst noted within the right sacral canal of uncertain significance Normal visualized sacral ala. Tarlov cyst noted within the sacral canal of uncertain significance. Normal visualized paraspinous soft tissue structures. MRI/Spine Lumbar (Routine) IMPRESSION: No evidence for acute fracture or other significant bony pathology. Postsurgical change status post bilateral laminectomy and posterior fusion at L5-S1. Bilateral neural foraminal stenosis at L4-5 secondary to minimal annular bulge and facet arthropathy Electronically Signed: Mayank Tan MD at 18:05 EDT ,
== END | disposition home or self-care (01) ==
LOC: MRI 16:57
PROVIDERS: PCP Internal Medicine; Referring Provider Anesthesiology Pain Medicine; Visit Provider Anesthesiology Pain Medicine
DX: M96.1 Postlaminectomy syndrome, not elsewhere classified (principal)
CPT/HCPCS: 72148

== ENCOUNTER → 2023-09-14 | Outpatient (CLI) | payer BC, SELFPAY ==
[2023-09-14 16:00] LABS: Ferritin 12 ng/mL (8-252)
== END | disposition home or self-care (01) ==
LOC: MTLAB 11:12
PROVIDERS: PCP Internal Medicine; Referring Provider Internal Medicine Pulmonary Disease; Visit Provider Internal Medicine Pulmonary Disease
DX: G25.81 Restless legs syndrome (principal)
CPT/HCPCS: 36415; 82728

== ENCOUNTER → 2023-09-28 | Outpatient (CLI) | payer BC, SELFPAY ==
--- NOTE | 2023-09-28 08:04 | BI_ITS ---
MAMMOGRAPHY - BILATERAL SCREENING REASON FOR EXAM: Female, 53 years old. Routine annual screening examination. PERTINENT HISTORY: Grandmother with breast cancer. TECHNIQUE: Digital bilateral breast ubaldo (3D mammographic acquisition) in the CC and MLO projections. 2-D mediolateral oblique (MLO) and craniocaudad (CC) views of both breasts were obtained. CAD: Full Field Digital Mammography with Computer Added Detection was performed. COMPARISON: Comparison is made with prior study dated May 31, 2022 and February 11, 2021. FINDINGS: Breast Composition: The breasts are almost entirely fatty. There are no dominant masses or suspicious calcifications. Stable small benign-appearing bilateral axillary lymph nodes. No other significant abnormalities are identified. There has been no significant change since the prior study. BI/SCRN MAMM (CAD)W/UBALDO BILAT IMPRESSION: Stable bilateral screening mammogram. Yearly follow-up mammogram recommended. (A) ASSESSMENT CATEGORY: BIRADS Category 2: Benign. A letter regarding these results will be sent to the patient by the facility within 30 days. Approximately 10% of breast cancers are not detected by mammography. A normal mammogram should not delay biopsy of a clinically suspicious abnormality. [id number] Electronically Signed: Calvin Lovell MD at 9:22 EDT ,
--- NOTE | 2023-09-28 08:04 | BD_ITS ---
STUDY: DUAL ENERGY X-RAY ABSORPTIOMETRY / DXA REASON FOR EXAM: Female, 53 years old. [id number] TECHNIQUE: Bone Mineral Density (BMD) measurements of lumbar spine and bilateral hips were obtained. COMPARISON: Comparison is made with prior study dated July 01, 2021. FINDINGS: Lumbar Spine (L1-L4): g/cm2 (0.779) / T-score (-2.2) / Z-score (-1.2) Findings are suggestive of osteopenia with a high fracture risk. Left Femur Total: g/cm2 (0.806) / T-score (-1.1) / Z-score (-0.5) Left Femoral Neck: g/cm2 (0.631) / T-score (-2.0) / Z-score (-1.0) Right Femur Total: g/cm2 (0.734) / T-score (-1.7) / Z-score (-1.1) Right Femoral Neck: g/cm2 (0.604) / T-score (-2.2) / Z-score (-1.1) The T-Scores on the most recent prior examination were: Lumbar Spine (L1-L4): There has been improvement of bone density since the previous examination. Left Femur Total: which represents an improvement of 9.9%. Right Femur Total: which represents an improvement of 6.7%. BD/Dexa Bone Density Study IMPRESSION: The patient is considered osteopenic as outlined below according to World [employer] Organization (WHO) criteria with a high fracture risk. There has been improvement of bone density since the previous examination. Reference Information: The T-score is the number of standard deviations above or below the standard which is normal for young adults at their peak bone mineral density. The World Health Organization (WHO) interprets the T-scores as follows: Above -1 Normal bone density Between -1 and -2.5 Osteopenia Equal to / or below -2.5 Osteoporosis As a practical clinical guideline, osteopenia may be graded as follows: Mild -1 through -1.5 Moderate -1.6 through -2.0 Severe -2.1 through -2.4 The Z-score is the number of standard deviations above or below age-matched controls. A Z-score of less than -1.5 would be considered abnormal. References: 1. NIH Osteoporosis and Related Bone Diseases www osteo.org 2. International Society for Clinical Densitometry www iscd.org 3. National Osteoporosis Foundation www nof.org Electronically Signed: Calvin Lovell MD at 10:31 EDT ,
== END | disposition home or self-care (01) ==
PROVIDERS: PCP Internal Medicine; Referring Provider Internal Medicine; Visit Provider Internal Medicine
DX: Z12.31 Encounter for screening mammogram for malignant neoplasm of breast (principal); M81.0 Age-related osteoporosis without current pathological fracture
CPT/HCPCS: 77063; 77067; 77080

== ENCOUNTER → 2023-12-15 | Outpatient (CLI) | payer BC, SELFPAY ==
--- NOTE | 2023-12-15 12:33 | CT_ITS ---
EXAM: CT RIGHT LOWER EXTREMITY WITHOUT INTRAVENOUS CONTRAST CLINICAL INDICATION: R TIBIAL PAIN, TECHNIQUE: Helically acquired images were obtained of the right lower extremity without intravenous contrast. 2-D reformats were performed by the technologist. CTDIvol = ( 15.35 ) mGy, DLP = ( 431.74 ) mGycm This CT exam was performed using one or more of the following dose reduction techniques: automated exposure control, adjustment of the mA and/or kV according to patient size, and/or use of iterative reconstruction technique. COMPARISON: 12/13/2023 FINDINGS: BONES/JOINTS: Small amount of suprapatellar joint fluid. Remote total knee arthroplasty with satisfactory alignment and no complications. No acute or healing fracture. No malalignment. No unusual lytic or sclerotic lesions of bone. SOFT TISSUES: Unremarkable. No soft tissue swelling or gas. No radiopaque foreign body. No soft tissue masses. CT/Extremity Lower without Contra IMPRESSION: 1. No acute osseous abnormalities or malalignment. 2. No hardware complications status post remote total knee arthroplasty. 3. No other findings to explain the clinical presentation. Electronically Signed: Efren Mcbride MD at 18:06 EDT ,
--- NOTE | 2023-12-15 12:36 | ECHOD_ITS ---
Reason For Study: ABNORMAL EKG Procedure This was a 2D Doppler, Color Flow transthoracic echocardiogram. Exam performed in department. Left Ventricle Normal LV size. Mild concentric left ventricular hypertrophy. The left ventricular ejection fraction is 65 %. Normal diastololic function. Right Ventricle Normal right ventricle. Atria The left and right atria are normal. Mitral Valve Trivial mitral valve insufficiency. Tricuspid Valve Trivial tricuspid valve insufficiency. Unable to estimate RV systolic pressure due to insufficient tricuspid regurgitant envelope. Aortic Valve Trisinus/trileaflet aortic valve. Pulmonic Valve The pulmonic valve is not well visualized. Great Vessels Normal sized aortic root. Pericardium/Pleural No pericardial effusion. MMode/2D Measurements & Calculations LVIDd: 4.2 cm IVSd: 1.0 cm LVOT diam: 2.1 cm LVIDs: 2.0 cm LVPWd: 1.2 cm LVOT area: 3.4 cm2 RVDd: 3.0 cm FS: 51.9 % asc Aorta Diam: 3.1 cm LAV(MOD-bp): 26.8 ml LVAd ap4: 19.4 cm2 LAV(MOD-bp) Indexed: 12.4 ml/m2 LVLd ap4: 7.3 cm LAV(MOD-sp2): 17.7 ml EDV(MOD-sp4): 41.8 ml LAV(MOD-sp4): 34.9 ml EDV(sp4-el): 43.8 ml LVAs ap4: 9.4 cm2 LVLs ap4: 5.7 cm ESV(MOD-sp4): 13.7 ml ESV(sp4-el): 13.1 ml EF(MOD-sp4): 67.3 % EF(sp4-el): 70.2 % LVAd ap2: 19.6 cm2 SV(MOD-sp4): 28.1 ml SV(MOD-sp2): 25.1 ml LVLd ap2: 7.4 cm EDV(MOD-sp2): 41.4 ml EDV(sp2-el): 44.0 ml LVAs ap2: 10.8 cm2 LVLs ap2: 6.1 cm ESV(MOD-sp2): 16.3 ml ESV(sp2-el): 16.2 ml EF(MOD-sp2): 60.7 % SV(sp4-el): 30.8 ml Ao sinus diam: 3.[address] Junction: 2.6 cm LA dimension(2D): 3.7 cm LA A4 area: 14.3 cm2 RA A4 area: 7.3 cm2 TAPSE: 1.7 cm Time Measurements MV dec time: 0.15 sec Doppler Measurements & Calculations MV E max felix: 73.4 cm/sec Lat Peak E' Felix: 12.4 cm/sec Med Peak E' Felix: 11.0 cm/sec MV A max felix: 61.2 cm/sec E/E' lat: 5.9 E/E' med: 6.7 MV E/A: 1.2 MV dec slope: 492.4 cm/sec2 Ao V2 max: 109.3 cm/sec LV V1 max: 94.1 cm/sec Ao max P.8 mmHg LV V1 max P.5 mmHg Ao V2 mean: 82.2 cm/sec LV V1 mean P.2 mmHg Ao mean P.9 mmHg LV V1 mean: 71.6 cm/sec Ao V2 VTI: 23.0 cm LV V1 VTI: 19.4 cm AV (velocity ratio): 0.84 TU(I,D): 2.9 cm2 TU(V,D): 2.9 cm2 SV(LVOT): 65.8 ml PA V2 max: 99.2 cm/sec PA max PG (full): 2.5 mmHg ECHO/Echo Complete Interpretation Summary Mild concentric left ventricular hypertrophy. The left ventricular ejection fraction is 65 %. Ordering Physician: Crystal Kauffman Referring Physician: La Cordero M.D. Performed By: Iveth Potter RDCS
== END | disposition home or self-care (01) ==
LOC: CT 12:30
PROVIDERS: PCP Internal Medicine
DX: M25.561 Pain in right knee (principal); Z96.651 Presence of right artificial knee joint; R94.31 Abnormal electrocardiogram [ECG] [EKG]
CPT/HCPCS: 73700; 93306

== ENCOUNTER 2024-02-27 10:30 | Outpatient (RCR) | payer BC, SELFPAY ==
--- NOTE | 2024-02-08 12:18 | HP.OTEVAL_ITS ---
Patient's Visit Information Visit Information Visit Information: PELON ROJAS is a 53 year old F, referred to Occupational Therapy by Dr. La Cordero MD, with a diagnosis of EDS & subluxation. Date of Evaluation: 02/08/24 Occupational Therapist: Isabel Jones, TESS/Radha, CHT Subjective Subjective: This 53 year old female was seen for OT eval with dx of EDS and subluxation - pt states she has more pain in right hand vs left- has pain around right cmc joint pt states she is sleeping in bilateral thumb spica braces. pt does have a home paraffin bath and she will use 1x a week. Pain right hand: Current Pain Intensity: 4 Pain Intensity Range: 6 left hand: Current Pain Intensity: 2 Pain Intensity Range: 5 ROM Wrist: right 75/80 left 75/90 CMC: right 15 left 10* MP: right 70* left 60* IP: right 60 left 60* Palmar Abduction: right 408 left 45* Strength Allergy And Immunology Chief: right 60# left 50# Lateral Pinch: right 14# left 14# Tripod Pinch: right 10# left 10# Quick DASH-Disab of Arm,Shoulder& Hand Quick DASH Score: 52.2725 Goals Goal:: pt will report pain no greater than 2/10 with use of supportive bracing by d.c Goal:: Pt will demo understanding of joint protection and ergonomics when performing BADLs and IADLs by d/c Pt will demo understanding of adaptive Equipment use to decrease stress on joints to allow pt to perform BADSL and IADLS at MICAELA level. Goal:: Pt will demo understanding of using supportive bracing 80% of workday/ADLS to decrease stress on tendon origin to allow healing and decrease pain by end of 2nd session. Rehabilitation General Assessment: pt demo with positive bilateral thumb hyper mobility and positive thumb instability with resistive testing- pain with resistive testing- Due to thumb pain and instability pt would benefit from skilled OT services 1x week for 3-4 weeks to ed. pt on joint protection kim, bracing and ad. eq. to decrease stress on thumb and wrist soft tissue structures. Pt demo understanding and agree to POC. Rehabilitation Potential: Good Anticipated Interventions Anticipated Interventions: Orthoses, Joint Protection/Energy Conservation, Ergonomic Education, ADL Training, Education re assistive Equipment, Education re Diagnosis and Home Program Visit Plan Frequency: 1x/Week Duration: 4 Weeks TEXT: Thank you for the opportunity to evaluate your patient. For Medicare and Medicare HMO plans, please review the plan of care and approve it. It will need to be FAXED BACK to us at [phone] for Medicare purposes. Please let me know if there are questions or concerns regarding this plan of care. Physician Signature: Date:
--- NOTE | 2024-09-03 07:31 | HP.OT.NRP ---
Patient Information Patient Information: PELON ROJAS was seen in my office for initial evaluation on 02/08/24. The following Plan of Care was established for this patient: POC Established Initial Frequency: 1x/Week Initial Duration: 4 Weeks Plan: thumb stabilization joint protection bracing Anticipated Interventions Anticipated Interventions: Orthoses, Joint Protection/Energy Conservation, Ergonomic Education, ADL Training, Education re assistive Equipment, Education re Diagnosis and Home Program Last Seen Last Seen: This patient was last seen in our office 02/27/24. Pertinent comments regarding their Occupational therapy will appear below: pt was seen 3/4 apts, No showed her 4th scheduled apt and re-scheduled and cx her last apt. scheduled. No further apts have been made. Due to time lapse in services pt is d/c. At this point I will be discontinuing this patient from occupational therapy. I would be happy to see this patient again in the future if found appropriate by the physician. Thank you! Isabel Jones, OTR/L, CHT
== END 2024-02-27 19:00 | disposition home or self-care (01) ==
LOC: OT 10:30
PROVIDERS: PCP Internal Medicine; Referring Provider Internal Medicine; Visit Provider Internal Medicine
DX: M79.643 Pain in unspecified hand (principal); S63.06 Subluxation and dislocation of metacarpal (bone), proximal end
CPT/HCPCS: 97035; 97110; 97140; 97166; 97530

== ENCOUNTER → 2024-05-20 | Outpatient (CLI) | payer OTHER, SELFPAY ==
[2024-05-20 14:19] LABS: Ferritin 31 ng/mL (22-378)
== END | disposition home or self-care (01) ==
PROVIDERS: PCP Internal Medicine; Referring Provider Internal Medicine Pulmonary Disease; Visit Provider Internal Medicine Pulmonary Disease
DX: G25.81 Restless legs syndrome (principal)
CPT/HCPCS: 36415; 82728

== ENCOUNTER → 2024-05-24 | Outpatient (CLI) | payer OTHER, SELFPAY ==
--- NOTE | 2024-05-24 09:58 | CT_ITS ---
PROCEDURE: ABDOMEN/PELVIS WITH CONTRAST (procedure code [id number]), 05/24/2024 REASON FOR EXAM: CT SCAN OF ABDOMEN AND PELVIS WITH CONTRAST: LEFT LOWER QUADRANT TECHNIQUE: CT abdomen and pelvis was performed with IV contrast. Multiplanar reformats were generated. Oral contrast also administered. IV contrast: Isovue-300 VOLUME: 98 ML Oral contrast: Readi-Cat. Volume information not provided. RADIATION DOSE SUMMARY: CTDlvol: 22.86 mGy DLP: 1350.59 mGycm One or more dose reduction techniques were used (e.g., Automated exposure control, adjustment of the mA and/or kV according to patient size, use of iterative reconstruction technique). COMPARISON: 02/01/2022 FINDINGS: Streak artifact related to lumbar spinal fusion hardware. Additional beam hardening artifact related to the LEFT arm which was positioned at the side rather than above the head. Lung bases: Minimal atelectasis/scarring. Liver: Unremarkable. Spleen: Unremarkable. Gallbladder: Cholecystectomy. Slightly increased prominence of the CBD to 12 mm, possible post cholecystectomy effect. Pancreas: Unremarkable. Adrenals: Unremarkable. Kidneys: At least partially duplicated RIGHT renal collecting system, normal variant. Bowel: Unremarkable. Normal caliber appendix. Lymph nodes: Unremarkable. Vasculature: Trace atherosclerosis. Circumaortic LEFT renal vein, normal variant. Peritoneum: Unremarkable. Bladder: Somewhat underdistended and suboptimally evaluated, grossly unremarkable. Reproductive Organs: Hysterectomy and likely bilateral oophorectomy. Body Wall: Partially imaged ascending thoracic spinal stimulator. Bones: L5-S1 posterior spinal fusion and laminectomy. Lower thoracic laminectomy has also been performed. Mild multilevel spondylosis. Subacute to chronic appearing RIGHT lateral 7th rib fracture is new from prior. CT/Abdomen/Pelvis WITH Contrast IMPRESSION: 1. Subacute to chronic appearing RIGHT lateral 7th rib fracture is new from . Correlate with history and point tenderness. 2. Cholecystectomy with slightly increased prominence of the CBD since 02/02/20 22 may be related to post cholecystectomy effect. Correlate with serum bilirubin. 3. Additional description as above. Reading Location: [id number]
== END | disposition home or self-care (01) ==
LOC: CT 09:39
PROVIDERS: PCP Internal Medicine; Referring Provider Internal Medicine; Visit Provider Internal Medicine
DX: R10.32 Left lower quadrant pain (principal)
CPT/HCPCS: 74177; Q9967

== ENCOUNTER 2024-09-23 08:42 | Day surgery (SDC) | payer OTHER, SELFPAY ==
--- NOTE | 2024-09-18 20:26 | PAT.ANESEVAL ---
Pre-Assessment Diagnosis/Proposed Procedure Planned Operative Procedure(s): CERVICAL EPIDURAL STEROID INJECTION Anesthesia History Anesthesia History - supervisor display fabrication: Anesthesia History - supervisor display fabrication Hx Hospitalization No 09/17/24 14:01 Any Problems With Anesthesia No 09/17/24 14:01 Cholinesterase deficiency No 09/17/24 14:01 You/Your Family Experience No 09/17/24 14:01 fever (hyperthermia) with Relationship Recent Exposure to Contagious No 02/18/19 10:20 Disease Does patient have nerve Yes 09/17/24 14:01 stimulator Patient instructed to have device shut off --Does patient have Pacemaker or ICD? When Was Last Pacemaker Check QUESTION #4 FULL TEXT: You/Your Family Experience fever (hyperthermia) with Anesthesia Last Oral Intake Last Oral intake: Last Oral Intake NPO since Meds taken in AM with sips of water? Meds patient instructed to take am of surgery PONV PONV - supervisor display fabrication: PONV - supervisor display fabrication Female Yes 09/17/24 14:01 HX of Motion Sickness Yes 09/17/24 14:01 HX of N/V After Surgery No 09/17/24 14:01 Non-Smoker Yes 09/17/24 14:01 Duration of Surgery greater No 09/17/24 14:01 than 60 minutes Number of Risk Factors 3 09/17/24 14:01 PONV Score Moderate Risk 09/17/24 14:01 Height & Weight Height & Weight: Anesthesia: Height & Weight Height 5 ft 7 in 05/16/24 11:39 Respiratory Assessment Respiratory Assessment - supervisor display fabrication: Respiratory Tract Infection Hx - supervisor display fabrication Hx Respiratory Tract Infection No 09/17/24 14:01 STOP Sleep Apnea STOP Sleep Apnea - supervisor display fabrication: STOP Sleep Apnea - supervisor display fabrication Hx Hypertension No 09/17/24 14:01 Hx Sleep Apnea Yes 09/17/24 14:01 CPAP No 09/17/24 14:01 BIPAP Yes 09/17/24 14:01 Do you snore loudly (louder than talking or can be heard Do you often feel tired/ fatigued/ sleepy during daytime? Has anyone observed you stop breathing during sleep? STOP Results Positive 09/17/24 14:01 QUESTION #5 FULL TEXT : Do you snore loudly (louder than talking or can be heard through closed doors)? Tobacco Use History Tobacco Use History - supervisor display fabrication: Tobacco Use History - supervisor display fabrication Tobacco Use Smoking Status Never smoker 09/17/24 14:01 Hx Tobacco Use No 09/17/24 14:01 Years Smoking Packs Smoked per Day Smoking Cessation Date was within the last 15 years Hx Smoking Cessation Date Hx Smoking Cessation Counseling Hematologic Medial History Hematologic Hx - supervisor display fabrication: Hematologic Medical Hx - neurourologist Hx of Blood Transfusion No 09/17/24 14:01 Hx of Transfusion in last 3 No 09/17/24 14:01 Months Date of Last Transfusion (if within last 3 months) Ever experience any problems No 09/17/24 14:01 with transfusion(s)? Specify any problems Hx of Preganancy in last 3 No 09/17/24 14:01 Months Nurse Filling Out Transfusion DSCHRIBER 09/17/24 14:01 & Questions: Date: 09/17/24 09/17/24 14:01 Time: 14:04 09/17/24 14:01 Patient unable to answer at this time (ie. confused, unrespo /Reproduction History /Reproductive History - supervisor display fabrication: /Reproductive Hx- supervisor display fabrication Hx Now No 09/17/24 14:01 Gestational Age (in weeks): EDC: Hx Hx Para Hx Section SAB No 09/17/24 14:01 PFS Medical History (Updated 09/17/24 @ 14:21 by Linda Mercedes) Wears glasses Depression Marijuana use History of renal disease Low iron Easy bruising Back pain Migraine headache Cardiology follow-up encounter Syncope Difficulty swallowing History of IBS Gastric reflux Non-smoker BiPAP (biphasic positive airway pressure) dependence Shortness of breath on exertion History of pain when walking History of echocardiogram History of stress test Spinal cord stimulator status Gastroparesis Raynauds disease Kit-Danlos disease Fibromyalgia Restless leg Osteoarthritis Rheumatoid arthritis Home Medications ?Medication ?Instructions ?Recorded ?Last Taken ?Type pregabalin 150 mg capsule (Lyrica) 100 mg PO BID PAIN 09/21/17 Unknown History omeprazole 40 mg capsule,delayed 40 mg PO BID GERD 10/18/17 10/25/17 07:00 History release duloxetine 60 mg capsule,delayed 60 mg PO DAILY 10/01/19 Unknown History release ondansetron HCl 4 mg tablet 4 mg PO DAILY Nausea 02/01/22 Unknown History tizanidine 4 mg tablet 4 mg PO QHS 02/01/22 Unknown History duloxetine 30 mg capsule,delayed 30 mg PO QHS 07/04/22 Unknown History release galcanezumab-gnlm 120 mg/mL 120 mg subcut QMONTH 07/04/22 Unknown History subcutaneous pen injector (Emgality Pen) pantoprazole 40 mg tablet,delayed 40 mg PO DAILY PRN GERD 09/17/24 Unknown History release Allergy/AdvReac Type Severity Reaction Status Date / Time ciprofloxacin (From Cipro) Allergy Hives Verified 09/17/24 13:57 ciprofloxacin HCl (From Allergy Hives Verified 09/17/24 13:57 Cipro) adhesive AdvReac Rash Verified 09/17/24 13:57 diphenhydramine (From AdvReac Other Verified 09/17/24 13:57 Benadryl) silver (From Tegaderm AG AdvReac Rash Verified 09/17/24 13:57 Mesh) Family History Other Cancer Hypertension Surgical History (Updated 09/17/24 @ 14:21 by Linda Mercedes) Total knee replacement status h/o left shoulder surgery History of partial knee replacement S/P cholecystectomy neurostimulator H/O: hysterectomy Kidney stones back fusion Social History Smoking Status: Never smoker Audit: Pertinent Findings Pertinent Findings Stress test pertinent findings: 05/2022: Perfusion SPECT analysis: Review of the stress images demonstrate normal uptake of tracer noted in all areas of the myocardium. The resting images similar demonstrated normal uptake of tracer noted in all areas of the myocardium. No areas of reversibility are noted to suggest ischemia and no previous infarct is noted. Gated SPECT analysis: The gated ejection fraction is 78%. Conclusion: Normal pharmacologic myocardial perfusion stress test. Preserved ejection fraction. Echo (EF%) pertinent findings: 12/2023: Interpretation Summary Mild concentric left ventricular hypertrophy. The left ventricular ejection fraction is 65 %. Recommendation Anesthesia Recommendation Anesthesia recommendation: OPTIMIZED for anesthesia (patient is optimized for anesthesia, consider MEAGHAN under local or nursing sedation.)
[2024-09-23] VITALS (9 sets, daily range): BP systolic 116–159; BP diastolic 83–102; PULSE 92–103; RESP 14–18; TEMP 36.1–37.1; O2SAT 90–97; BMI 38.4
[2024-09-23] MEDS: Lactated Ringers 1,000 ML 15 ML IV (09:18)
--- NOTE | 2024-09-23 09:25 | PCM.PRE.AN2 ---
ASA Classification* ASA Classification ASA Classification: 3 Assessment & Plan Anesthesia* Anesthesia Assessment Anesthesia Assessment: Discussed sedation and/or anesthesia options, risks, benefits, and alternatives with patient/parents/legal guardian/POA. Questions invited. The patient/parents/legal guardian/POA seems to understand and agrees to proceed with anesthesia plan. Reviewed the physical assessment, medical history, allergy history and patient home medications list prior to surgery/procedure/anesthetic and documented any changes. Performed airway and anesthesia risk assessments. Anesthesia Type Anesthesia Type: MAC History Source History Obtained from:: Patient and Chart Anesthesia Focused Assessment* Temperature: 97 F Pulse Rate: 97 Blood Pressure: 116/86 Respiratory Rate: 16 Pulse Ox: 97 Oxygen Delivery Method: Room Air Airway Assessment Mouth opens: >3 cm Mallampati Score: II Teeth Condition: Intact Neck Range of motion (ROM): Full ROM Labs Anesthesia Preop lab: CBC WBC 8.8 K/mm3 (4.4-11.0) 02/01/22 18:20 02/01/22 RBC 4.71 M/mm3 (4.2-5.4) 02/01/22 18:20 02/01/22 Hgb 14.3 g/dL (12.0-15.0) 02/01/22 18:20 02/01/22 Hct 43.2 % (37-47) 02/01/22 18:20 02/01/22 Plt Count 299 K/mm3 (150-450) 02/01/22 18:20 02/01/22 CHEMISTRY Potassium 3.5 mmol/L (3.5-5.1) 02/01/22 18:20 02/01/22 Sodium 142 mmol/L (136-145) 02/01/22 18:20 02/01/22 BUN 8 mg/dL (7-18) 02/01/22 18:20 02/01/22 Creatinine 1.04 mg/dL (0.55-1.02) H 02/01/22 18:20 02/01/22 Glucose 93 mg/dL (74-106) 02/01/22 18:20 02/01/22 TSH 0.62 uIU/mL (0.358-3.74) 12/30/14 14:59 12/30/14 COAG Pre-Assessment Diagnosis/Proposed Procedure Planned Operative Procedure(s): CERVICAL EPIDURAL STEROID INJECTION Anesthesia History Anesthesia History - telephone service representative: Anesthesia History - telephone service representative Hx Hospitalization No 09/17/24 14:01 Any Problems With Anesthesia No 09/17/24 14:01 Cholinesterase deficiency No 09/17/24 14:01 You/Your Family Experience No 09/17/24 14:01 fever (hyperthermia) with Relationship Recent Exposure to Contagious No 09/23/24 09:14 Disease Does patient have nerve Yes 09/17/24 14:01 stimulator Patient instructed to have device shut off --Does patient have Pacemaker No 09/23/24 09:14 or ICD? When Was Last Pacemaker Check QUESTION #4 FULL TEXT: You/Your Family Experience fever (hyperthermia) with Anesthesia Last Oral Intake Last Oral intake: Last Oral Intake NPO since 19:00 09/23/24 09:14 Meds taken in AM with sips of Yes 09/23/24 09:14 water? Meds patient instructed to lyrica, omeprazole, cymbalta 09/23/24 09:14 take am of surgery PONV PONV - telephone service representative: PONV - telephone service representative Female Yes 09/17/24 14:01 HX of Motion Sickness Yes 09/17/24 14:01 HX of N/V After Surgery No 09/17/24 14:01 Non-Smoker Yes 09/17/24 14:01 Duration of Surgery greater No 09/17/24 14:01 than 60 minutes Number of Risk Factors 3 09/17/24 14:01 PONV Score Moderate Risk 09/17/24 14:01 Height & Weight Height & Weight: Anesthesia: Height & Weight Height 5 ft 7 in 09/23/24 09:14 Weight: 111.2 kg 09/23/24 09:14 Body Mass Index (BMI) 38.4 09/23/24 09:14 Respiratory Assessment Respiratory Assessment - telephone service representative: Respiratory Tract Infection Hx - telephone service representative Hx Respiratory Tract Infection No 09/17/24 14:01 STOP Sleep Apnea STOP Sleep Apnea - telephone service representative: STOP Sleep Apnea - telephone service representative Hx Hypertension No 09/17/24 14:01 Hx Sleep Apnea Yes 09/17/24 14:01 CPAP No 09/17/24 14:01 BIPAP Yes 09/17/24 14:01 Do you snore loudly (louder than talking or can be heard Do you often feel tired/ fatigued/ sleepy during daytime? Has anyone observed you stop breathing during sleep? STOP Results Positive 09/17/24 14:01 QUESTION #5 FULL TEXT : Do you snore loudly (louder than talking or can be heard through closed doors)? Tobacco Use History Tobacco Use History - telephone service representative: Tobacco Use History - telephone service representative Tobacco Use Smoking Status Never smoker 09/17/24 14:01 Hx Tobacco Use No 09/17/24 14:01 Years Smoking Packs Smoked per Day Smoking Cessation Date was within the last 15 years Hx Smoking Cessation Date Hx Smoking Cessation Counseling Hematologic Medial History Hematologic Hx - telephone service representative: Hematologic Medical Hx - senior cost accountant Hx of Blood Transfusion No 09/17/24 14:01 Hx of Transfusion in last 3 No 09/17/24 14:01 Months Date of Last Transfusion (if within last 3 months) Ever experience any problems No 09/17/24 14:01 with transfusion(s)? Specify any problems Hx of Preganancy in last 3 No 09/17/24 14:01 Months Nurse Filling Out Transfusion DSCHRIBER 09/17/24 14:01 & Questions: Date: 09/17/24 09/17/24 14:01 Time: 14:04 09/17/24 14:01 Patient unable to answer at this time (ie. confused, unrespo /Reproduction History /Reproductive History - telephone service representative: /Reproductive Hx- telephone service representative Hx Now No 09/17/24 14:01 Gestational Age (in weeks): EDC: Hx Hx Para Hx Section SAB No 09/17/24 14:01 Active Medications Active Medications: Current Medications Generic Name Dose Route Start Last Admin Trade Name Freq PRN Reason Stop Dose Admin Lactated Ringer's 1,000 mls @ 15 mls/hr 09/23/24 09:00 09/23/24 09:18 IV 15 mls/hr .Q48H ELOINA Administration PFSH Medical History (Updated 09/17/24 @ 14:21 by Linda Mercedes) Wears glasses Depression Marijuana use History of renal disease Low iron Easy bruising Back pain Migraine headache Cardiology follow-up encounter Syncope Difficulty swallowing History of IBS Gastric reflux Non-smoker BiPAP (biphasic positive airway pressure) dependence Shortness of breath on exertion History of pain when walking History of echocardiogram History of stress test Spinal cord stimulator status Gastroparesis Raynauds disease Kit-Danlos disease Fibromyalgia Restless leg Osteoarthritis Rheumatoid arthritis Home Medications ?Medication ?Instructions ?Recorded ?Last Taken ?Type pregabalin 150 mg capsule (Lyrica) 100 mg PO BID PAIN 09/21/17 09/23/24 History omeprazole 40 mg capsule,delayed 40 mg PO BID GERD 10/18/17 09/23/24 History release duloxetine 60 mg capsule,delayed 60 mg PO DAILY 10/01/19 09/23/24 History release ondansetron HCl 4 mg tablet 4 mg PO DAILY Nausea 02/01/22 Unknown History tizanidine 4 mg tablet 4 mg PO QHS 02/01/22 Unknown History duloxetine 30 mg capsule,delayed 30 mg PO QHS 07/04/22 Unknown History release galcanezumab-gnlm 120 mg/mL 120 mg subcut QMONTH 07/04/22 Unknown History subcutaneous pen injector (Emgality Pen) pantoprazole 40 mg tablet,delayed 40 mg PO DAILY PRN GERD 09/17/24 Unknown History release Allergy/AdvReac Type Severity Reaction Status Date / Time ciprofloxacin (From Cipro) Allergy Hives Verified 09/23/24 09:12 ciprofloxacin HCl (From Allergy Hives Verified 09/23/24 09:12 Cipro) adhesive AdvReac Rash Verified 09/23/24 09:12 diphenhydramine (From AdvReac Other Verified 09/23/24 09:12 Benadryl) silver (From Tegaderm AG AdvReac Rash Verified 09/23/24 09:12 Mesh) Family History Other Cancer Hypertension Surgical History (Updated 09/17/24 @ 14:21 by Linda Mercedes) Total knee replacement status h/o left shoulder surgery History of partial knee replacement S/P cholecystectomy neurostimulator H/O: hysterectomy Kidney stones back fusion Social History Smoking Status: Never smoker Review of Systems (Anesthesia) ROS Narrative System reviewed and no additional complaints, except as documented.
--- NOTE | 2024-09-23 09:33 | RAD_ITS ---
PROCEDURE: FLUOR GUIDANCE FOR SPINE INJ 09/23/2024 REASON FOR EXAM: BLOCK CERVICAL EPIDURAL TECHNIQUE: FLUOR GUIDANCE FOR SPINE INJ Fluoroscopy time: 5.5 seconds. Radiation dose: 1.47 mGy FINDINGS: 2 fluoroscopic spot images demonstrate needle approaching the lower cervical spine. Other findings: Other: RAD/Fluor Guidance for Spine Inj IMPRESSION: Fluoroscopy provided for cervical spine injection. For complete details, see t he operative report. Reading Location: [facility]
[2024-09-23] MEDS: Lidocaine 1% (20 ml mdv) 20 ML Vial (09:44)
[2024-09-23] MEDS: 0.9% Normal Saline (Pres. free 10 ML Vial (09:44)
--- NOTE | 2024-09-23 09:55 | PCM.POST.ANE ---
Anesthesia: Postop Eval I Current Vital Signs Temperature: 98 F Pulse Rate: 102 Blood Pressure: 157/102 Respiratory Rate: 14 Pulse Ox: 93 Assessment Airway patent: Yes Spontaneous unlabored respirations: Yes nausea: No Vomiting: No Anesthesia Complication: No Fluid Hydration Crystalloid volume administer (ml): 500 Total IV fluid infused: 500 Progress Note Anesthesia document: Postop Eval 1 completed: Yes
--- NOTE | 2024-09-23 10:59 | OP.PCM_ITS ---
Operative Report (Standard) Operative Information Date of Procedure: 09/23/24 Pre-Operative Diagnosis: 1 Post-Operative Diagnosis: 1 Surgery/Procedure Performed: 1 puttying and calking supervisor: No Type of Anesthesia: Local MAC RN Documented Start/Stop Times: Operation Date: 09/23/24 10:10 Case Time Into Pre-Op 09/23/24 08:52 Anesthesia Start 09/23/24 09:32 Into Room 09/23/24 09:32 Procedure Start 09/23/24 09:42 Procedure End 09/23/24 09:45 Anesthesia End 09/23/24 09:48 Out of Room 09/23/24 09:48 Into Recovery 09/23/24 09:50 Out of Recovery 09/23/24 10:10 Into Phase II Recovery 09/23/24 10:12 Procedure Start Time: 11:00 Procedure Stop Time: 11:00 Select all DRAINS/GRAFTS/IMPLANTS that apply: None Estimated Blood Loss: 1 Specimen collected: No Description of surgery: PREOPERATIVE DIAGNOSES: Cervical radiculopathy, cervical spinal stenosis, cervical degenerative disc disease POSTOPERATIVE DIAGNOSES: Cervical radiculopathy, cervical spinal stenosis, cervical degenerative disc disease PROCEDURE PERFORMED: Cervical epidural steroid injection, interlaminar at C7-T1 under fluoroscopic guidance. ANESTHESIA: MAC BLOOD LOSS: Minimal. COMPLICATIONS: None. DESCRIPTION OF PROCEDURE: History and physical of today was reviewed. Risks and benefits of the procedure were explained. The patient understood and agreed to proceed. Informed consent was obtained. IV inserted per routine protocol. The patient was taken to the operating room and placed in the prone position with a pillow positioned underneath the chest. The neck area was prepped and draped in a sterile fashion using iodine x3. Under fluoroscopy guidance on an AP view, the C7-T1 interlaminar space was identified. The skin and subcutaneous tissue was anesthetized with approximately 3 mL of 1% lidocaine using a 25-gauge regular needle. Under direct visualization on fluoroscopy, on AP view, using a 20-gauge 3-1/2-inch Tuohy needle, the needle was advanced via the skin. The tip of the needle was maneuvered and directed towards the interlaminar space at C7- T1. Loss of resistance technique was carried to air. Loss of resistance technique was encountered. Once encountered, after negative aspiration for blood and CSF, a total of 1 mL of contrast was injected to confirm correct placement of the needle as well as cephalocaudal spread of the contrast. Confirmation was obtained on AP as well as lateral view. After repeated negative aspiration and confirmation, a total of 3 mL of preservative-free normal saline and 80 mg of Depo-Medrol was injected easily. The needle was then removed intact. The patient experienced no sign or symptoms of intrathecal or intravascular injection. The patient experienced no paresthesia. The procedure was completed without any apparent difficulty or any complications. The patient appeared to tolerate it well. ASSESSMENT AND PLAN: This is a 54-year-old female with cervical radiculopathy, cervical tree of disc disease, cervical spinal stenosis status post cervical epidural steroid injection interlaminar and C7-T1 under fluoroscopic guidance, patient will continue her current medications, patient will follow-up in approximately 2 weeks for reevaluation. Surgical Findings: 1 Complications Complications: No Admit VTE Documentation VTE Present on Admission: No VTE Mechan Device Prophylaxis: None VTE Pharm Prophylaxis ordered?: No
--- NOTE | 2024-09-23 14:00 | POSTOPAN2_ITS ---
Anesthesia Postop Eval I Sum Postop Eval Completion status Anesthesia document: Postop Eval 1 completed: Yes Anesthesia Postop Eval I Summary Anesthesia Postop Eval I Summary: Anesthesia Postop Eval I: Assessment Summary Airway patent Yes 09/23/24 09:55 REAL TIME [email or web address] Spontaneous unlabored Yes 09/23/24 09:55 REAL TIME [email or web address] respirations Mental status nausea No 09/23/24 09:55 REAL TIME [email or web address] Vomiting No 09/23/24 09:55 REAL TIME [email or web address] Anesthesia Postop Eval I: Fluid Summary Crystalloid volume administer 500 09/23/24 09:55 REAL TIME [email or web address] (ml) Colloids volume administered ( ml) Blood Product volume administered (ml) Total IV fluid infused 500 09/23/24 09:55 REAL TIME [email or web address] Anesthesia Postop Eval I: Summary Notes Anesthesia Complication No 09/23/24 09:55 REAL TIME [email or web address] Anesthesia Complication Comment: Post-operative progress note Anesthesia: Postop Eval II Evaluation Mental status: Awake and Calm Pain Level: 2 nausea: No Vomiting: No Complications Anesthesia Complication: No
--- NOTE | 2024-09-23 14:00 | PCM.POSTANE2 ---
Anesthesia Postop Eval I Sum Postop Eval Completion status Anesthesia document: Postop Eval 1 completed: Yes Anesthesia Postop Eval I Summary Anesthesia Postop Eval I Summary: Anesthesia Postop Eval I: Assessment Summary Airway patent Yes 09/23/24 09:55 [email or web address] Spontaneous unlabored Yes 09/23/24 09:55 [email or web address] respirations Mental status nausea No 09/23/24 09:55 BANK [email or web address] Vomiting No 09/23/24 09:55 [email or web address] [email or web address] Anesthesia Postop Eval I: Fluid Summary Crystalloid volume administer 500 09/23/24 09:55 [email or web address] [email or web address] (ml) Colloids volume administered ( ml) Blood Product volume administered (ml) Total IV fluid infused 500 09/23/24 09:55 [email or web address] Anesthesia Postop Eval I: Summary Notes Anesthesia Complication No 09/23/24 09:55 [email or web address] [email or web address] Anesthesia Complication Comment: Post-operative progress note Anesthesia: Postop Eval II Evaluation Mental status: Awake and Calm Pain Level: 2 nausea: No Vomiting: No Complications Anesthesia Complication: No
== END 2024-09-23 11:34 | disposition home or self-care (01) ==
LOC: SDC 08:44 → AC 08:48
PROVIDERS: PCP Internal Medicine; Referring Provider Anesthesiology Pain Medicine; Visit Provider Anesthesiology Pain Medicine
PROC: 3E0S3BZ Introduction of Anesthetic Agent into Epidural Space, Percutaneous Approach (ICD-10-PCS; CPT 62320; principal; 2024-09-23 10:05)
DX: M50.13 Cervical disc disorder with radiculopathy, cervicothoracic region (principal); M06.9 Rheumatoid arthritis, unspecified; M48.02 Spinal stenosis, cervical region; F32.A Depression, unspecified; K21.9 Gastro-esophageal reflux disease without esophagitis; M79.7 Fibromyalgia; G25.81 Restless legs syndrome; Z90.49 Acquired absence of other specified parts of digestive tract; Z79.899 Other long term (current) drug therapy
CPT/HCPCS: 62321; 01992; 64490; 77003

== ENCOUNTER → 2025-02-10 | Outpatient (CLI) | payer OTHER, SELFPAY ==
[2025-02-10 13:03] LABS: Vitamin D,25 Hydroxy 22.6 ng/mL (30-100)
== END | disposition home or self-care (01) ==
LOC: CIMLAB 10:18
PROVIDERS: PCP Internal Medicine; Referring Provider Internal Medicine; Visit Provider Internal Medicine
DX: E55.9 Vitamin D deficiency, unspecified (principal)
CPT/HCPCS: 36415; 82306